=== PATIENT | female | born 1995 | race Caucasian/White ===

== ENCOUNTER 2020-09-04 17:56 | Emergency (ER) | payer OTHER, SELFPAY ==
--- NOTE | ~2020-09-04 | US_ITS ---
EXAMINATION: US OB LESS THAN 14 WEEKS FETUS US OB TRANSVAGINAL CLINICAL INFORMATION: Vaginal bleeding. History of miscarriages. COMPARISON: No prior imaging for the current . LMP: 07/19/2020. Gestational age by maternal dates is 6 weeks 5 days. Estimated date of delivery by maternal dates is 04/25/2021. TECHNIQUE: Transabdominal, transvaginal, and cine imaging was obtained. FINDINGS: No intrauterine or endometrial sac identified. Trace, simple free fluid within the cervix. Heterogeneous endometrium without significant thickening measuring up to 0.8 cm. Possible fundal fibroid measuring up to 0.9 cm. No additional myometrial lesion. MATERNAL ADNEXA: The right maternal ovary measures 5.1 x 2.3 x 1.7 cm. There is a probable involuting corpus luteum measuring up to 2.2 cm. The left maternal ovary measures 2.9 x 1.5 x 2.2 cm. No maternal pelvic ascites. US/US OB <= 14 weeks fetus IMPRESSION: 1. No intrauterine gestation. Slightly heterogeneous endometrium without significant thickening. Trace, simple fluid within the cervix. 2. Probable fundal fibroid measuring 0.9 cm. 3. Involuting right ovarian corpus luteum.
--- NOTE | ~2020-09-04 | US_ITS ---
EXAMINATION: US OB LESS THAN 14 WEEKS FETUS US OB TRANSVAGINAL CLINICAL INFORMATION: Vaginal bleeding. History of miscarriages. COMPARISON: No prior imaging for the current . LMP: 07/19/2020. Gestational age by maternal dates is 6 weeks 5 days. Estimated date of delivery by maternal dates is 04/25/2021. TECHNIQUE: Transabdominal, transvaginal, and cine imaging was obtained. FINDINGS: No intrauterine or endometrial sac identified. Trace, simple free fluid within the cervix. Heterogeneous endometrium without significant thickening measuring up to 0.8 cm. Possible fundal fibroid measuring up to 0.9 cm. No additional myometrial lesion. MATERNAL ADNEXA: The right maternal ovary measures 5.1 x 2.3 x 1.7 cm. There is a probable involuting corpus luteum measuring up to 2.2 cm. The left maternal ovary measures 2.9 x 1.5 x 2.2 cm. No maternal pelvic ascites. US/US OB transvaginal IMPRESSION: 1. No intrauterine gestation. Slightly heterogeneous endometrium without significant thickening. Trace, simple fluid within the cervix. 2. Probable fundal fibroid measuring 0.9 cm. 3. Involuting right ovarian corpus luteum.
[2020-09-04 18:16] VITALS: BP 141/71; PULSE 109; RESP 16; TEMP 36.6; O2SAT 98; BMI 38.7
[2020-09-04 18:37] LABS: MANUAL DIFF FLAG NO
[2020-09-04 18:41] LABS: Basophils Absolute Auto 0.1 X10*3/uL (0.0-0.2); Basophils Percent Auto 0.6 % (0-2); Eosinophils Absolute Auto 0.1 X10*3/uL (0.0-0.4); Eosinophils Percent Auto 0.9 % (0-4); Hematocrit 48.4 % (37-47); Hemoglobin 15.7 g/dl (12.0-16.0); Imm Gran Abs Auto 0.06 X10*3/uL (0.00-0.03); Imm Gran Pct Auto 0.6 % (0.0-0.4); Lymphocytes Absolute Auto 2.4 X10*3/uL (1.2-4.9); Lymphocytes Percent Auto 23.2 % (20-40); Mean Corpuscular HGB Conc 32.4 g/dl (31.0-35.0); Mean Corpuscular Hemoglobin 30.1 pg (27.0-33.0); Mean Corpuscular Volume 92.9 fL (80-98); Mean Platelet Volume 11.6 fL (9.4-12.3); Monocytes Absolute Auto 0.7 X10*3/uL (0.1-1.2); Monocytes Percent Auto 6.6 % (2-11); Neutrophils Absolute Auto 7.1 X10*3/uL (2.0-8.3); Neutrophils Percent Auto 68.1 % (45-73); Platelet Count 223 X10*3/uL (160-400); Red Blood Count 5.21 X10*6/uL (4.20-5.50); Red Cell Distribution Width 12.9 % (11.0-16.0); White Blood Count 10.4 X10*3/uL (4.8-10.8)
[2020-09-04 19:02] LABS: Anion Gap 14 (12-20); Blood Urea Nitrogen 9 mg/dL (9-16); Calcium 9.3 mg/dL (8.4-10.2); Carbon Dioxide 27 mmol/L (22-29); Chloride 104 mmol/L (96-108); Creatinine Clr Calc Pharmacy 101.5; Estimated Glomerular Filt Rate > 60; Glucose Random 100 mg/dL (60-115); Potassium 4.3 mmol/L (3.3-5.1); Sodium 141 mmol/L (135-145)
[2020-09-04 19:10] LABS: HCG Quantitative 111 mIU/mL
--- NOTE | 2020-09-04 21:47 | ED.PREGNANCY ---
HPI - General Chief complaint: Vaginal Bleeding Stated complaint: vag bleed () Time Seen by Provider: 09/04/20 21:34 Source: patient Mode of arrival: ambulatory Limitations: no limitations History of Present Illness HPI Narrative: Patient comes emergency room complaining of vaginal bleeding. Patient states by last menstrual. She is approximately 6 weeks of gestational age. Patient is G4PA3. Patient states she was seen 2 days ago , her OB GYNs office, [facility], patient is known to be A negative blood type, and given RhoGAM. Patient states that she has been spotting for almost 5 days now, but for the last 2 days she has been bleeding, about the same amount than her usual menstrual periods, no blood clots. Earlier this afternoon patient had cramping, she took ibuprofen and naproxen. Related Data Allergies Allergy/AdvReac Type Severity Reaction Status Date / Time nickel [NICKEL] Allergy Mild ITCHY RASH Unverified 02/04/20 19:34 Review of Systems Review of Systems: Constitutional : No Weight loss, No Fever, No Chills, No Night Sweats, No Fatigue, No Malaise ENT/Mouth : No Hearing loss, No Ear Pain, No Nasal Congestion, No Sinus Pain, No Hoarseness, No sore throat, No Rhinorrhea, No Swallowing Difficulty Eyes: No Eye Pain, No Swelling, No Redness, No Foreign Body, No Discharge, No Vision Changes Cardiovascular : No Chest Pain, No SOB, No Dyspnea on Exertion, No Orthopnea, No Edema, No Palpitations Respiratory : No Cough, No Sputum, No Wheezing, No Smoke Exposure, No Dyspnea Gastrointestinal : No Nausea, No Vomiting, No Diarrhea, No Constipation, No abdominal Pain other than mild occasional cramping which resolved now, No Hematochezia, No Melena Genitourinary : No dysuria, no hematuria, complaining of vaginal bleeding Musculoskeletal : No joint pain, No Myalgias, No Joint Swelling Skin : No Skin Lesions, No rash Neuro : No Weakness, No Numbness, No Paresthesias, No Loss of Consciousness, No Dizziness, No Headache Psych : No Anxiety/Panic, No Depression, No SI/HI/AH/VH, No Social Issues, Heme/Lymph: No Bruising, No Bleeding,No Lymphadenopathy Endocrine : No Polyuria, No Polydipsia, No Temperature Intolerance [facility] Past Medical History Medical History (Updated 09/05/20 @ 00:31 by Suha George MD) History of multiple miscarriages No known health problems Social History Social History Advance Directives: No Physical Exam Vital Signs: Vital Signs: Last Vital Signs Temp 98 F 09/04/20 18:16 Pulse 94 09/04/20 22:17 Resp 16 09/04/20 22:17 BP 132/91 H 09/04/20 22:17 Pulse Ox 97 09/04/20 22:17 Body Mass Index 38.7 Appearance: Alert. Oriented X3. No acute distress. Eyes: Pupils equal, round and reactive to light. ENT: Pharynx normal. Neck: Normal inspection. Neck supple. No lymph nodes noted. No crepitus CVS: Normal heart rate and rhythm. Pulses normal. Normal S1 and S2 Respiratory: No respiratory distress. Breath sounds normal. No Wheezing. No rales Abdomen: Soft and nontender. No rigidity. No distention. good BS x4 : Cervical os open, small to moderate amount of blood in the vaginal vault, no active bleeding through the cervical os Skin: Skin warm and dry. Normal skin color. Normal skin turgor. Extremities: No lower extremity edema. No lower extremity edema. No Lacerations. No Rash Neuro: Oriented X 3. No motor deficit. No sensory deficit. Moving all extermities. No slurred speech. Course Course Course Narrative: I discussed the physical exam and the ultrasound and labs with the patient. Ultrasound there was no intrauterine gestation. I discussed with the patient that she needs to have further workup with her PCP/OBGYN to figure out the reasons of her repeated miscarriages, rule out antiphospholipid syndrome, any other etiologies. Patient struck with a follow-up with her OBGYN Patient had a RhoGAM shot 2 days ago, at this time a 2nd injection is not indicated. MDM - OB/Uterine Contractions Lab Data Result diagrams: 09/04/20 18:30 09/04/20 18:30 Labs: Lab Results 09/04/20 09/04/20 Range/Units 18:30 18:30 WBC 10.4 (4.8-10.8) X10*3/uL RBC 5.21 (4.20-5.50) X10*6/uL Hgb 15.7 (12.0-16.0) g/dl Hct 48.4 H (37-47) % MCV 92.9 (80-98) fL MCH 30.1 (27.0-33.0) pg MCHC 32.4 (31.0-35.0) g/dl RDW 12.9 (11.0-16.0) % Plt Count 223 (160-400) X10*3/uL MPV 11.6 (9.4-12.3) fL Immature Gran % (Auto) 0.6 H (0.0-0.4) % Neut % (Auto) 68.1 (45-73) % Lymph % (Auto) 23.2 (20-40) % [place] % (Auto) 6.6 (2-11) % Eos % (Auto) 0.9 (0-4) % Baso % (Auto) 0.6 (0-2) % Lymph # (Auto) 2.4 (1.2-4.9) X10*3/uL [place] # (Auto) 0.7 (0.1-1.2) X10*3/uL Eos # (Auto) 0.1 (0.0-0.4) X10*3/uL Baso # (Auto) 0.1 (0.0-0.2) X10*3/uL Abs Immat Gran (auto) 0.06 H (0.00-0.03) X10*3/uL Absolute Neuts (auto) 7.1 (2.0-8.3) X10*3/uL Absolute Nucleated RBC 0.000 (0.0-0.012) X10*3/uL Nucleated RBC % (auto) 0.0 (0.0-0.2) /100WBC Sodium 141 (135-145) mmol/L Potassium 4.3 (3.3-5.1) mmol/L Chloride 104 (96-108) mmol/L Carbon Dioxide 27 (22-29) mmol/L Anion Gap 14 (12-20) BUN 9 (9-16) mg/dL Creatinine 0.90 (0.5-1.4) mg/dL Estim Creat Clear Calc 101.5 Estimated GFR > 60 Random Glucose 100 (60-115) mg/dL Calcium 9.3 (8.4-10.2) mg/dL Beta HCG, Quant 111 mIU/mL 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 Trace, simple free fluid within the cervix. Heterogeneous endometrium without significant thickening measuring up to 0.8 cm. Possible fundal fibroid measuring up to 0.9 cm. No additional myometrial lesion. MATERNAL ADNEXA: The right maternal ovary measures 5.1 x 2.3 x 1.7 cm. There is a probable involuting corpus luteum measuring up to 2.2 cm. The left maternal ovary measures 2.9 x 1.5 x 2.2 cm. No maternal pelvic ascites. US/US OB <= 14 weeks fetus IMPRESSION: 1. No intrauterine gestation. Slightly heterogeneous endometrium without significant thickening. Trace, simple fluid within the cervix. 2. Probable fundal fibroid measuring 0.9 cm. 3. Involuting right ovarian corpus luteum. Discharge Plan Discharge Clinical Impression: History of multiple miscarriages Patient Disposition: Home, Self-Care Instructions: Miscarriage (ED) Additional Instructions: Please follow-up with your OBGYN, the level (hCG) needs to decrease, you may need blood work again. Please follow-up with your primary care physician tomorrow. If you have any worsening or new symptoms, please return to the emergency room or call 911
[2020-09-04 22:17] VITALS: BP 132/91; PULSE 94; RESP 16; O2SAT 97
== END 2020-09-05 01:37 | disposition home or self-care (01) ==
PROVIDERS: Emergency Provider Emergency Medicine
DX: O20.0 Threatened abortion (principal); Z3A.01 Less than 8 weeks gestation of pregnancy
CPT/HCPCS: 36415; 76801; 76817; 80048; 84702; 85025; 99284

== ENCOUNTER 2020-10-06 16:24 | Emergency (ER) | payer OTHER, SELFPAY ==
[2020-10-06 16:29] VITALS: BP 140/96; PULSE 105; RESP 18; TEMP 36.9; O2SAT 97; BMI 36.6
--- NOTE | 2020-10-06 17:20 | ED.ANIMALBIT ---
HPI - Animal Bite General Chief Complaint: Animal Bite Stated Complaint: Dog bite Time Seen by Provider: 10/06/20 17:02 Source: patient Mode of arrival: ambulatory Limitations: no limitations History of Present Illness HPI narrative: 25 y/o female presenting with superficial laceration and bruising to her right forearm from her dog when she was trying to break up a dog fight at the dog park prior to arrival. She states as soon as her dog realized it was her arm, he released his bite. Bite pascal are localized to the dorsal aspect of her right forearm with bruising and superficial abrasions. There is also a 1cm laceration without active bleeding. Small amount of adipose tissue is visible. She states her dog is not up to date on his vaccines but is healthy. He has never bitten her or another person before. MD complaint: animal bite Onset (ago): hour(s) (1) Animal: dog Description of animal: household pet Mechanism: bite Location - Extremities: right: forearm Pain description: dull Severity scale (1-10): 5 Context: animals fighting Treatments prior to arrival: irrigation Related Data Patient tetanus UTD: No Previous Rx's Medication Instructions Recorded amoxicillin-pot clavulanate 1 tab PO BID #14 tab 10/06/20 [Augmentin] Allergies Allergy/AdvReac Type Severity Reaction Status Date / Time nickel [NICKEL] Allergy Mild ITCHY RASH Unverified 02/04/20 19:34 Review of Systems Review of Systems: Constitutional: No Fever, No Chills Gastrointestinal: + Nausea, No Vomiting Musculoskeletal: No joint pain, + Myalgias Skin: + Skin Lesions, No rash Neuro: No Weakness, No Numbness Psych: + Anxiety/Panic, No Depression Heme/Lymph: +Bruising, No Lymphadenopathy PMFSH Past Medical History Attestation statement: The following information was validated with the patient. Medical History History of multiple miscarriages No known health problems Social History Social History Advance Directives: No Advance Directives Information Provided: No Patient : No Physical Exam Vital Signs: Vital Signs: Last Vital Signs Temp 98.4 F 10/06/20 16:29 Pulse 105 H 10/06/20 16:29 Resp 18 10/06/20 16:29 BP 140/96 H 10/06/20 16:29 Pulse Ox 97 10/06/20 16:29 Body Mass Index 36.6 Appearance: Alert. Oriented X3. No acute distress. HEENT: normal inspection CVS: Normal heart rate and rhythm. Pulses normal. Respiratory: No respiratory distress. Skin: Skin warm and dry. Normal skin color. Normal skin turgor. No rashes. Extremities: right dorsal forearm with multiple superficial abrasions and 1cm lineaer laceration with exposed adipose tissue, no active bleeding. ecchymosis of forearm with soft and compressible compartments. NV intact distally. normal ROM of right elbow and wrist. Neuro: Oriented X 3. No motor deficit. No sensory deficit. Course Course Course Narrative: 25 y/o female presenting with dog bite from her dog. Wounds are superficial with ecchymosis surrounding. Bite was not circumfrential, do not suspect any bony involvement or injury. No need for x-ray at this time. Would cleaned extensively with H2O2 and saline. Wound closed with steri strip and antibiotic ointment applied. Dry and sterile dressing applied. Tdap, augmentin and Motrin ordered. Patient is stable for discharge with PO abx. She will monitor her dog at home. Procedures Laceration Laceration 1: Site: upper extremity Side (If applicable): right Size (cm): 1 Description: linear Depth: simple, single layer Pre-repair: irrigated extensively Skin layer closed with: other (steri-strip) Critical Care Time Critical Care Time Critical Care Time: No Discharge Plan Discharge Clinical Impression: Dog bite Qualifiers: Encounter type: initial encounter Qualified Code(s): W54.0XXA - Bitten by dog, initial encounter Patient Disposition: Home, Self-Care Instructions: Animal Bite (ED) Additional Instructions: Take the prescribed antibiotic as directed. Keep wound clean and covered. Do not soak in water. After 24 hours you may briefly wash with soap and water then pat dry. Use antibiotic ointment 2x per day. Allow the steri-strip to fall off on its own, do not peel it off. Take Motrin as needed for pain. Apply ice and elevate your arm when possible. If you develop increased pain, swelling, redness or drainage of pus come back to the ER for further evaluation. Prescriptions: New amoxicillin-pot clavulanate [Augmentin] 875-125 mg tablet 1 tab PO BID Qty: 14 RF: 0
[2020-10-06] MEDS: Ibuprofen 600 MG TABLET PO (17:41)
[2020-10-06] MEDS: Diphth,Pertus(ACell),Tet Adult 0.5 ML SYRINGE IM (17:42)
[2020-10-06] MEDS: Amoxicillin/Potassium Clav 875 MG TABLET PO (17:42)
== END 2020-10-06 17:46 | disposition home or self-care (01) ==
PROVIDERS: Emergency Provider Emergency Medicine
DX: S51.851A Open bite of right forearm, initial encounter (principal); W54.0XXA Bitten by dog, initial encounter; Y93.89 Activity, other specified; Y92.830 Public park as the place of occurrence of the external cause; Y99.9 Unspecified external cause status
CPT/HCPCS: 90471; 90715; 99283; 99284

== ENCOUNTER 2021-07-22 03:25 | Emergency (ER) | payer OTHER, SELFPAY ==
--- NOTE | ~2021-07-22 | US_ITS ---
EXAMINATION: US OBSTETRICAL ULTRASOUND CLINICAL INFORMATION: Significant pain, vaginal bleeding COMPARISON: Patient reportedly had outside facility ultrasound on 07/17/2021, with images not available for comparison at this time LMP: 04/23/2021. Gestational age by maternal dates is 12 weeks 6 days. Estimated date of delivery by maternal dates is 01/28/2022. TECHNIQUE: Sonographic evaluation of the pelvis was performed transabdominally and transvaginally. FINDINGS: The uterus measures 11.0 cm in length and 5.1 x 6.4 cm in AP and transverse dimensions. Gestational sac is visualized in the region of the lower uterine segment/cervix. pole is identified with a crown-rump length of 2.1 cm corresponding to gestational age 8 weeks 5 days (estimated date of delivery 02/26/2022). No cardiac activity is seen. The right ovary measures 3.5 x 2.5 x 1.7 cm and appears unremarkable. The left ovary measures 2.9 x 1.9 x 2.1 cm and also appears unremarkable. Small amount of free fluid is seen in the cul-de-sac. US/US OB pelvic and transvaginal IMPRESSION: Gestational sac within the lower uterine segment/cervix. pole is identified without cardiac activity, and gestational age as per crown-rump length is approximately 4 weeks less than expected as per reported last menstrual period. Appearance is consistent with failed early . This critical result was discussed with Dr. Fowler on 07/22/2021 6:22 AM, and it was ascertained that the content and urgency of the report was understood at the time of direct communication.
[2021-07-22 03:27] VITALS: BP 106/88; PULSE 88; RESP 18; TEMP 36.4; O2SAT 97; BMI 43.9
--- NOTE | 2021-07-22 04:09 | PC.NURSE ---
Addendum entered by Brigido Meng RN 07/22/21 04:14: In addition, the pt states she is having vaginal bleeding and I'm passing some clots. Original Note: The pt presents alert and oriented x 3 from waiting room for evaluation of severe abdominal/pelvic pain. SHe states she was seen at [facility] last night and was told that she is having a miscarriage but my cervix is closed. Pt is writhing in pain upon arrival to bed 14. Skin pink/warm/dry, no nausea or vomiting, no fevers or chills. IV access/labs obtained. Awaiting initial MD [email or web address].
[2021-07-22 04:11] LABS: MANUAL DIFF FLAG NO
[2021-07-22 04:14] LABS: Basophils Absolute Auto 0.1 X10*3/uL (0.0-0.2); Basophils Percent Auto 0.3 % (0-2); Eosinophils Absolute Auto 0.1 X10*3/uL (0.0-0.4); Eosinophils Percent Auto 0.7 % (0-4); Hematocrit 39.5 % (37.0-47.0); Hemoglobin 12.9 g/dl (12.0-16.0); Imm Gran Abs Auto 0.09 X10*3/uL (0.00-0.03); Imm Gran Pct Auto 0.5 % (0.0-0.4); Lymphocytes Absolute Auto 2.9 X10*3/uL (1.2-4.9); Lymphocytes Percent Auto 15.4 % (20-40); Mean Corpuscular HGB Conc 32.7 g/dl (31.0-35.0); Mean Corpuscular Hemoglobin 28.9 pg (27.0-33.0); Mean Corpuscular Volume 88.4 fL (80.0-98.0); Mean Platelet Volume 11.4 fL (9.4-12.3); Monocytes Absolute Auto 1.1 X10*3/uL (0.1-1.2); Monocytes Percent Auto 5.7 % (2-11); Neutrophils Absolute Auto 14.5 x10*3/uL (2.0-8.3); Neutrophils Percent Auto 77.4 % (45-73); Platelet Count 205 X10*3/uL (160-400); Red Blood Count 4.47 X10*6/uL (4.20-5.50); White Blood Count 18.7 X10*3/uL (4.8-10.8)
[2021-07-22 04:28] LABS: Anion Gap 11 (12-20); Blood Urea Nitrogen 12 mg/dL (9-16); Calcium 9.2 mg/dL (8.4-10.2); Carbon Dioxide 26 mmol/L (22-29); Chloride 104 mmol/L (96-108); Creatinine Clr Calc Pharmacy 132.7; Estimated Glomerular Filt Rate > 60; Glucose Random 111 mg/dL (60-115); Potassium 3.9 mmol/L (3.3-5.1); Sodium 137 mmol/L (135-145)
[2021-07-22 04:35] LABS: HCG Quantitative 331 mIU/mL
[2021-07-22] MEDS: Ketorolac Tromethamine 30 MG/ML VIAL 15 MG IVPUSH (04:51)
[2021-07-22] MEDS: HYDROmorphone HCl 0.5 MG/0.5 ML SYRINGE 0.1 MG IVPUSH (04:51)
--- NOTE | 2021-07-22 05:24 | ED_ITS ---
HPI - Female Genitourinary General Chief complaint: Urogenital-Female Stated complaint: miscarriage Time Seen by Provider: 07/22/21 04:10 Source: patient Mode of arrival: ambulatory History of Present Illness HPI Narrative: 25-year-old female without significant past medical history presents with significant lower abdominal/pelvic pain without associated fever, chills, nausea vomiting, diarrhea. Patient states that she was evaluated at [facility] yesterday for vaginal bleeding and passing of clots. Patient states that on 07/17 she was told that she had miscarried and at that time there were no plans for D&C. Related Data Previous Rx's Medication Instructions Recorded amoxicillin 875 mg-potassium 1 tab PO BID #14 tab 10/06/20 clavulanate 125 mg tablet (Augmentin) ketorolac 10 mg tablet 10 mg PO Q6H PRN 5 Days #20 tab 07/22/21 Allergies Allergy/AdvReac Type Severity Reaction Status Date / Time nickel [NICKEL] Allergy Mild ITCHY RASH Unverified 02/04/20 19:34 Review of Systems Review of Systems: Pertinent positives and negatives as stated in HPI 10 point review of systems is otherwise negative. PMFSH Past Medical History Source: nursing notes reviewed Medical History History of multiple miscarriages No known health problems Social History Social History Advance Directives: No Patient : Yes Physical Exam Vital Signs: Vital Signs: Last Vital Signs Temp 97.6 F 07/22/21 03:27 Pulse 88 07/22/21 03:27 Resp 18 07/22/21 03:27 BP 106/88 07/22/21 03:27 Pulse Ox 97 07/22/21 03:27 BMI result Body Mass Index 43.9 VITAL SIGNS: Reviewed. GENERAL: Well developed, well nourished, in moderate distress. HEAD: Normocephalic/atraumatic EYES: PERRLA, EOMI EARS: Ext canals without abnormality OROPHARYNX: no oral lesions noted, posterior pharynx clear LUNGS: Normal breath sounds. No adventitious sounds or accessory muscle use. SpO2<97> CARDIOVASCULAR: Regular rate and rhythm without noted murmurs ABDOMEN: Soft, abdominal tenderness without rebound non-distended with bowel sounds. MUSCULOSKELETAL: No tenderness, deformities, or effusions noted on gross inspection. EXTREMITIES: No cyanosis, clubbing or edema. SKIN: Inspection of the skin reveals no rashes NEUROLOGIC: Alert and oriented x 4. Strength and sensation to light touch were grossly intact x 4. Course Course Course Narrative: 25-year-old female with history clinical presentation consistent with retained products of conception, patient was evaluated at [facility] and discharged on pain medications with plans for D&C on Saturday and ultrasound findings that on review of all investigations are consistent with today's findings. There been no acute changes and the products of conception are noted to be in the lower uterine segment and fluid is seen within the cervix. Patient was provided with pain medications as well as a single dose of antibiotics and on re- evaluation she states that she is feeling much better. Patient is otherwise hemodynamically stable for discharge home with strict return precautions regarding any development of fever, chills, nausea, vomiting or significant increase in vaginal bleeding. Patient states that she has had mild vaginal bleeding but that it is not requiring pad change hourly. Reevaluation(s) Reevaluation #1: Mid- Luis recommends discharge if nothing further found. Time: 04:50 [facility] - Female Genitourinary Lab Data Result diagrams: 07/22/21 04:07 07/22/21 04:07 Labs: Lab Results 07/22/21 07/22/21 07/22/21 Range/Units 04:07 04:07 06:01 WBC 18.7 H (4.8-10.8) X10*3/uL RBC 4.47 (4.20-5.50) X10*6/uL Hgb 12.9 (12.0-16.0) g/dl Hct 39.5 (37.0-47.0) % MCV 88.4 (80.0-98.0) fL MCH 28.9 (27.0-33.0) pg MCHC 32.7 (31.0-35.0) g/dl RDW 13.0 (11.0-16.0) % Plt Count 205 (160-400) X10*3/uL MPV 11.4 (9.4-12.3) fL Immature Gran % (Auto) 0.5 H (0.0-0.4) % Neut % (Auto) 77.4 H (45-73) % Lymph % (Auto) 15.4 L (20-40) % [place] % (Auto) 5.7 (2-11) % Eos % (Auto) 0.7 (0-4) % Baso % (Auto) 0.3 (0-2) % Lymph # (Auto) 2.9 (1.2-4.9) X10*3/uL [place] # (Auto) 1.1 (0.1-1.2) X10*3/uL Eos # (Auto) 0.1 (0.0-0.4) X10*3/uL Baso # (Auto) 0.1 (0.0-0.2) X10*3/uL Abs Immat Gran (auto) 0.09 H (0.00-0.03) X10*3/uL Absolute Neuts (auto) 14.5 H (2.0-8.3) x10*3/uL Absolute Nucleated RBC 0.000 (0.0-0.012) X10*3/uL Nucleated RBC % (auto) 0.0 (0.0-0.2) /100WBC Sodium 137 (135-145) mmol/L Potassium 3.9 (3.3-5.1) mmol/L Chloride 104 (96-108) mmol/L Carbon Dioxide 26 (22-29) mmol/L Anion Gap 11 L (12-20) BUN 12 (9-16) mg/dL Creatinine 0.74 (0.5-1.4) mg/dL Estim Creat Clear Calc 132.7 Estimated GFR > 60 Random Glucose 111 (60-115) mg/dL Lactic Acid 1.1 (0.5-2.0) mmol/L Calcium 9.2 (8.4-10.2) mg/dL Beta HCG, Quant 331 mIU/mL Discharge Plan Discharge Clinical Impression: Missed , Retained products of conception, early Patient Disposition: Home, Self-Care Instructions: Miscarriage (ED) Additional Instructions: 1. Resume all home medications as prescribed. 2. Tylenol 1000 mg, orally, every 6 hours as needed for pain control. Do not exceed 4000 mg within 24 hours. 3. Keep your appointment for your procedure on Saturday as scheduled. Return to the ER for worsening symptoms such as fevers, chills, nausea, vomiting, vaginal bleeding requiring you to change your pads every hour. Prescriptions: New ketorolac 10 mg tablet 10 mg PO Q6H PRN (Reason: pain) 5 Days Qty: 20 0RF Rx Instructions: Patient received Toradol in the emergency room. No Action amoxicillin-pot clavulanate [Augmentin] 875-125 mg tablet 1 tab PO BID Qty: 14 0RF
[2021-07-22] MEDS: Piperacillin Sodium/Tazobactam 3.375 GM in 0.9 % Sodium Chloride 50 ML IV (06:06)
[2021-07-22 06:15] LABS: Lactic Acid 1.1 mmol/L (0.5-2.0)
== END 2021-07-22 07:10 | disposition home or self-care (01) ==
PROVIDERS: Emergency Provider Student in an Organized Health Care Education/Training Program
DX: O02.1 Missed abortion (principal); Z3A.08 8 weeks gestation of pregnancy; R10.30 Lower abdominal pain, unspecified
CPT/HCPCS: 36415; 76801; 76817; 80048; 83605; 84702; 85025; 87040; 96365; 96375; 99284; 99285; J1170; J1885; J2543

== ENCOUNTER 2023-01-02 18:06 | Emergency (ER) | payer MEDICAID, SELFPAY ==
[2023-01-02 18:15] VITALS: BP 126/71; PULSE 100; RESP 18; TEMP 36.8; O2SAT 98; BMI 44.1
--- NOTE | 2023-01-02 18:15 | ED.FEMALEGU ---
HPI - Female Genitourinary General Chief complaint: General Medical Stated complaint: rhogam shot Related Data Previous Rx's Medication Instructions Recorded amoxicillin 875 mg-potassium 1 tab PO BID #14 tabs 10/06/20 clavulanate 125 mg tablet (Augmentin) ketorolac 10 mg tablet 10 mg PO Q6H PRN pain 5 days #20 07/22/21 tabs Allergies Allergy/AdvReac Type Severity Reaction Status Date / Time nickel [NICKEL] Allergy Mild ITCHY RASH Unverified 02/04/20 19:34 [facility] Past Medical History Medical History History of multiple miscarriages No known health problems Social History Social History Advance Directives: No Advance Directives Information Provided: No Physical Exam Vital Signs: Vital Signs: Last Vital Signs Temp 98.3 F 01/02/23 18:15 Pulse 100 01/02/23 18:15 Resp 18 01/02/23 18:15 BP 126/71 01/02/23 18:15 Pulse Ox 98 01/02/23 18:15 O2 Del Method Room Air 01/02/23 18:15 BMI result Body Mass Index 44.1 Course Course Course Narrative: RME: 27yo F @12 weeks gestation c/o vaginal bleeding 2 weeks ago and then 2 days ago, was instructed by JOSEF to obtain RhoGAM injection however has not yet made it back and they are closed today. denies current bleeding or abdominal pain Labs ordered Full HPI, ROS and PE to be performed by primary ED provider. Medical Decision Making Lab Data 01/02/23 18:28 01/02/23 18:28 Labs: Lab Results 01/02/23 01/02/23 01/02/23 Range/Units 18:28 18:28 18:28 WBC 15.7 H (4.8-10.8) X10*3/uL RBC 4.45 (4.20-5.50) X10*6/uL Hgb 13.2 (12.0-16.0) g/dl Hct 38.5 (37.0-47.0) % MCV 86.5 (80.0-98.0) fL MCH 29.7 (27.0-33.0) pg MCHC 34.3 (31.0-35.0) g/dl RDW 13.1 (11.0-16.0) % Plt Count 172 (160-400) X10*3/uL MPV 11.5 (9.4-12.3) fL Immature Gran % (Auto) 0.6 H (0.0-0.4) % Neut % (Auto) 71.4 (45-73) % Lymph % (Auto) 21.0 (20-40) % [place] % (Auto) 5.9 (2-11) % Eos % (Auto) 0.8 (0-4) % Baso % (Auto) 0.3 (0-2) % Lymph # (Auto) 3.3 (1.2-4.9) X10*3/uL [place] # (Auto) 0.9 (0.1-1.2) X10*3/uL Eos # (Auto) 0.1 (0.0-0.4) X10*3/uL Baso # (Auto) 0.1 (0.0-0.2) X10*3/uL Abs Immat Gran (auto) 0.10 H (0.00-0.03) X10*3/uL Absolute Neuts (auto) 11.2 H (2.0-8.3) x10*3/uL Absolute Nucleated RBC 0.000 (0.0-0.012) X10*3/uL Nucleated RBC % (auto) 0.0 (0.0-0.2) /100WBC Sodium 136 (135-145) mmol/L Potassium 3.9 (3.3-5.1) mmol/L Chloride 104 (96-108) mmol/L Carbon Dioxide 24 (22-29) mmol/L Anion Gap 12 (12-20) BUN 8 L (9-16) mg/dL Creatinine 0.74 (0.5-1.4) mg/dL Estim Creat Clear Calc 130.7 Estimated GFR > 60 Random Glucose 87 (60-115) mg/dL Calcium 9.7 (8.4-10.2) mg/dL Beta HCG, Quant 71022 mIU/mL Blood Type A Negative Discharge Plan Discharge Clinical Impression: Diagnosis unknown Patient Disposition: Elopement Prescriptions: No Action amoxicillin-pot clavulanate [Augmentin] 875-125 mg tablet 1 tab PO BID Qty: 14 0RF ketorolac 10 mg tablet 10 mg PO Q6H PRN (Reason: pain) 5 Days Qty: 20 0RF Rx Instructions: Patient received Toradol in the emergency room. Interventions: ED Discharge Assessment Last Done: 01/02/23 19:09 Discharge Date/Time: 01/02/23 20:13
--- NOTE | 2023-01-02 18:31 | MHC.EDTECH ---
PATIENT BLOOD DRAWN INCLUDING TYPE AND SCREEN AND SENT TO LAB .
[2023-01-02 18:33] LABS: MANUAL DIFF FLAG NO
[2023-01-02 18:39] LABS: Basophils Absolute Auto 0.1 X10*3/uL (0.0-0.2); Basophils Percent Auto 0.3 % (0-2); Eosinophils Absolute Auto 0.1 X10*3/uL (0.0-0.4); Eosinophils Percent Auto 0.8 % (0-4); Hematocrit 38.5 % (37.0-47.0); Hemoglobin 13.2 g/dl (12.0-16.0); Imm Gran Pct Auto 0.6 % (0.0-0.4); Lymphocytes Absolute Auto 3.3 X10*3/uL (1.2-4.9); Mean Corpuscular HGB Conc 34.3 g/dl (31.0-35.0); Mean Corpuscular Hemoglobin 29.7 pg (27.0-33.0); Mean Corpuscular Volume 86.5 fL (80.0-98.0); Mean Platelet Volume 11.5 fL (9.4-12.3); Monocytes Absolute Auto 0.9 X10*3/uL (0.1-1.2); Monocytes Percent Auto 5.9 % (2-11); Neutrophils Absolute Auto 11.2 x10*3/uL (2.0-8.3); Neutrophils Percent Auto 71.4 % (45-73); Platelet Count 172 X10*3/uL (160-400); Red Blood Count 4.45 X10*6/uL (4.20-5.50); Red Cell Distribution Width 13.1 % (11.0-16.0); White Blood Count 15.7 X10*3/uL (4.8-10.8)
[2023-01-02 18:54] LABS: Anion Gap 12 (12-20); Blood Urea Nitrogen 8 mg/dL (9-16); Calcium 9.7 mg/dL (8.4-10.2); Carbon Dioxide 24 mmol/L (22-29); Chloride 104 mmol/L (96-108); Creatinine Clr Calc Pharmacy 130.7; Estimated Glomerular Filt Rate > 60; Glucose Random 87 mg/dL (60-115); Potassium 3.9 mmol/L (3.3-5.1); Sodium 136 mmol/L (135-145)
[2023-01-02 19:14] LABS: HCG Quantitative 39120 mIU/mL
== END 2023-01-02 20:13 | disposition left against medical advice (07) ==
LOC: HO.ED 20:11
PROVIDERS: Physician Assistant; Emergency Provider Emergency Medicine; PCP Internal Medicine
DX: O36.0910 Maternal care for other rhesus isoimmunization, first trimester, not applicable or unspecified (principal); Z3A.12 12 weeks gestation of pregnancy; Z79.899 Other long term (current) drug therapy
CPT/HCPCS: 36415; 80048; 84702; 85025; 86900; 86901; 99282; 99283

== ENCOUNTER 2025-01-25 14:07 | Outpatient (AMB) | payer MEDICAID, SELFPAY ==
--- NOTE | 2025-01-25 14:05 | A.OFFPC_ITS ---
Vital Signs 01/25/25 14:07 Height 5 ft 1.81 in Weight 247 lb BMI 45.5 BP 112/59 L Respiration 14 Pulse 96 Pulse Source Pulse Oximeter Temp 98.1 F Temp Source Temporal Artery Scan Pulse Oximetry (%) 96 Oxygen Delivery Method Room Air Intake Visit Reasons: Establish Care - see comments Sales Compensation Analyst Required: No Accompanied by: Self / Same As Patient Allergies nickel (NICKEL) Allergy (Mild, Unverified 01/25/25 14:05) ITCHY RASH Tobacco use date assessed: 01/25/25 Dental Screening Dental Screen Date: 01/25/25 Did you have a dental visit in the last 12 months?: No Did you have a dental problem in the last 6 months where you did not have access to dental care?: No Was dental information given to patient?: Patient has dentist [facility] Medical History (Updated 01/25/25 @ 14:34 by Victorino Theodore MD) Panic attacks Obesity History of multiple miscarriages No known health problems Family History (Updated 01/25/25 @ 14:13 by JOSAFAT Verdugo) Father Heart attack Prediabetes Mother IBS (irritable bowel syndrome) Social History (Updated 01/25/25 @ 14:14 by JOSAFAT Verdugo) Housing: Apartment Alcohol intake: current Alcohol intake frequency: holidays/special occasions only Patient Tobacco Use Status: Current everyday Tobacco user Cigarettes Per Day: 10 service: No Current occupational status: unemployed Cognitive needs: No Hearing needs: No Vision needs: No Questionnaire PHQ-9 Over the last 2 weeks, how often have you been bothered by any of the following problems? 1. Little interest or pleasure in doing things: not at all 2. Feeling down, depressed, or hopeless: not at all 3. Trouble falling or staying asleep, or sleeping too much: not at all 4. Feeling tired or having little energy: not at all 5. Poor appetite or overeating: not at all 6. Feeling bad about yourself - or that you are a failure or have let yourself or your family down: not at all 7. Trouble concentrating on things, such as reading the newspaper or watching television: not at all 8. Moving or speaking so slowly that other people could have noticed. Or the opposite - being so fidgety or restless that you have been moving around a lot more than usual: not at all 9. Thoughts that you would be better off or of hurting yourself in some way: not at all Total score: 0 Source: Developed by Drs. Cj Ruzi, Leslie Molina, Curly Mi and colleagues, with an educational joann from [employer]. Thrive Questionnaire Date Thrive assessed: 01/25/25 I am a: Patient What is your living situation today?: I have a steady place to live Within the past 12 months, did the food you bought not last and you didn't have the money to get more?: Never true Within the past 12 months, did you worry whether your food would run out before you got money to buy more?: Never true Do you have trouble paying for medicines?: No Do you have trouble getting transportation to medical appointments?: No Do you have trouble paying your heating and electricity bill?: No Do you have trouble taking care of your child, family member or friend?: No Do you have trouble with day-to-day activities such as bathing, preparing meals, shopping, managing finances, etc.?: No Are you currently unemployed and looking for a job?: No Are you interested in more education?: No Please select the resources that you would like help with: None THRIVE Score: 0 AUDIT C Alcohol Use Questionnaire (AUDIT-C) 1. How often do you have a drink containing alcohol?: Monthly or less 2. How many drinks containing alcohol do you have on a typical day when you are drinking?: 1 or 2 3. How often do you have six or more drinks on one occasion?: Never Total Score: 1 ELAINA-7 AMB Questionnaire ELAINA-7 Date ELAINA - 7 assessed: 01/25/25 Feeling nervous, anxious, or on edge: 3 = Nearly every day Not being able to stop or control worryin = More than half the days Worrying too much about different things: 3 = Nearly every day Trouble relaxin = More than half the days Being so restless that it is hard to sit still: 1 = Several days Becoming easily annoyed or irritable: 2 = More than half the days Feeling afraid as if something awful might happen: 0 = Not at all Total ELAINA-7 score (0-4 normal; 5-9 mild; 10-14 moderate; 15-21 severe): 13 Source: Developed by DrsBahman Ruiz, Leslie Molina, Curly Mi and colleagues, with an educational joann from [employer]. Physical exam (Primary Care) Vital Signs: Last Vital Signs Temp 98.1 F 01/25/25 14:07 Pulse 96 01/25/25 14:07 Resp 14 01/25/25 14:07 BP 112/59 L 01/25/25 14:07 Pulse Ox 96 01/25/25 14:07 Oxygen Delivery Method Room Air 01/25/25 14:07 BMI result Body Mass Index 45.5 Tobacco/Smoking Status: Tobacco use Status Tobacco use date assessed 01/25/25 01/25/25 14:07 Patient Tobacco Use Status Current everyday Tobacco 01/25/25 14:16 PHQ-9: PHQ-9 Score PHQ-9: Total score 0 01/25/25 14:07 Thrive Assessment: Date of Thrive Assessment Date Thrive assessed 01/25/25 01/25/25 14:07 Coding Level of Care Code New Pt Level 4 (88412) Complex EM visit Add On G2211 Diagnoses Obesity E66.9 Panic attacks F41.0 Assessment & Plan Assessment & Plan (1) Obesity: Code(s): E66.9 - Obesity, unspecified Category: Medical Plan: Patient is interested in bariatric surgery. She had a partial workup before her periods needs a new referral. The same was given. (2) Panic attacks: Code(s): F41.0 - Panic disorder [episodic paroxysmal anxiety] Category: Medical Plan: Gets want to do attacks a month. Unwilling to go on long-acting and long-term medications. Advised that no more than 5 anxiolytics will be given per month. She can control her symptoms with Xanax 0.25 mg, 5 pills every month then this prescription will be continued. No more than 5 pills will be given every month. Patient agrees. Orders: Orders Basic Metabolic Panel Today E66.9 - Obesity, unspecified Complete Blood Count no Diff Today E66.9 - Obesity, unspecified Lipid Panel Today E66.9 - Obesity, unspecified Liver Panel Today E66.9 - Obesity, unspecified Thyroid Stimulating Hormone Today E66.9 - Obesity, unspecified UA and rflx microscopic Today E66.9 - Obesity, unspecified Referrals General Surgery Referral E66.9 - Obesity, unspecified Medications: New alprazolam (Xanax) 0.25 mg PO DAILY PRN 5 tabs 0RF anxiety Discontinued amoxicillin-pot clavulanate 875-125 mg (Augmentin) Discontinued Reason: Patient no longer taking 1 tab PO BID 14 tabs 0RF ketorolac Patient received Toradol in the emergency room. Discontinued Reason: Patient no longer taking 10 mg PO Q6H 5 days PRN 20 tabs 0RF pain
[2025-01-25 14:07] VITALS: BP 112/59; PULSE 96; RESP 14; TEMP 36.7; O2SAT 96; BMI 45.5
--- OUTSIDE RECORDS SUMMARY | 2025-01-25 16:28 | XMS_ITS | Encounter Summary ---
Author Organization [facility] Address [address] [place] [address] [place] [phone] Phone Care Team Providers Care Field Laborer Name Role Phone Tye Montaño MD Primary Care Provider [phone] Encounter Details Date Type Department Care Team (Late st Contact Info) Description 07/14/2023 Procedure Pass [facility] Procedures [address] [place] [address] Social History Tobacco Use Types Packs/Day Years Used Date Smoking Tobacco: Every Day Cigarettes 0.5 12.7 Started: 2012 Smokeless Tobacco: Never Comments:5 a day Alcohol Use Standard Drinks/Week Comments Not Currently 0 (1 standard drink = 0.6 oz pur e alcohol) Education Answer Date Recorded Are you interested in more education? Not on franny e 09/14/2022 Are you concerned about learning? Not on file 09/14/2022 No 09/14/2022 No 09/14/2022 Food Answer Date Recorded Within the past 6 months we worried whether our food would run out before we got money to buy more. Never True 07/13/2023 Within the past 6 months the food we bought just didn't last and we didn't have enough money to get more. Never True Residential Stability Answer Date Recor ded What is your housing situation today? I have wilder sing 07/13/2023 How many times have you move d in the past 12 months? Zero (I did not move) 07/13/2023 Paying for Meds Answer Date Recorded Do you have trouble paying for medicines? No 07/13/2023 Paying Utility Bills Answer Date Record ed Do you have trouble paying your heating or elect ricity bill? No 07/13/2023 Transportation Answer Date Recorded Has the lack of transportati on kept you from medical appointments or from getting medications? No 07/13/2023 Digital Access Answer Date Recorded No 07/13/2023 Yes 07/13/2023 Do you have reliable internet access at home? Ye s 07/13/2023 Do you have a device (e.g., phone, tablet, computer) with a working camera? Yes 07/13/2023 Intimate Partner Violence Answer Date R ecorded Are you denied basic needs s uch as food, clothing, or medical care? No 07/15/2023 In the past 12 months have y ou been in a relationship with a person who hurts, threatens, or tries to control you? No 07/15/2023 Are you denied basic needs s uch as food, clothing, or medical care? No 07/15/2023 In the past 12 months have y ou been in a relationship with a person who hurts, threatens, or tries to control you? No 07/15/2023 Comments No Sex and Gender Information Value Date Recorded Sex Assigned at Female 04/24/2020 9:48 PM EST Legal Sex Female 9:34 PM EST Gender Identity Female 04/24/2020 9:48 PM EST Sexual Orientation Straight 04/24/2020 9: 48 PM EST documented as of this encounter Functional Status * Calculated C-SSRS Risk Score (Lifetime/Recent) Answer Date of Assessment Author No Risk Indicated 07/15/2023 4:00 PM Arlen Welch RN * [place] Suicide Severity Rating Scale (Screener/Recent Self-Report) Question Answer Date of Assessment Author 1. Wish to be (Past 1 Month) No 024 4:00 PM Arlen Welch RN 2. Non-Specific Active Suici jessica Thoughts (Past 1 Month) No 07/15/2023 4:00 PM Laura Welch RN 6. Suicidal Behavior (Lifetime) No 4:00 PM Arlen Welch RN documented as of this encounter Plan of Treatment Not on file documented as of this encounter Visit Diagnoses Not on filedocumented in this encounter Care Teams Field Laborer Relationship Specialty Start Date End Date Tye Montaño MD [address] [place] [address] PCP - General Internal Medicine 03/25/23 documented as of this encounter Additional Source Comments The information contained in this document represents components of the legal health record. It is not the complete legal health record.[facility]
--- OUTSIDE RECORDS SUMMARY | 2025-01-25 16:28 | XMS_ITS | Encounter Summary ---
Author Organization [facility] Address [address] [place] [phone] Phone Care Team Providers Care Documentation Specialist Name Role Phone Pcp, Unknown Primary Care Provider Tye Ann MD Primary Care Provider [phone]- [phone] Encounter Details Date Type Department Care Team (Late st Contact Info) Description 07/24/2021 Procedure Pass [place] Admitting Dept - Virtual Department [address] [place] [address] Social History Tobacco Use Types Packs/Day Years Used Date Smoking Tobacco: Every Day Cigarettes 0.5 12.7 Started: 2012 Smokeless Tobacco: Never Comments:5 a day Alcohol Use Standard Drinks/Week Comments Not Currently 0 (1 standard drink = 0.6 oz pur e alcohol) Comments Yes Sex and Gender Information Value Date Recorded Sex Assigned at Female 04/24/2020 9:48 PM EST Legal Sex Female 9:34 PM EST Gender Identity Female 04/24/2020 9:48 PM EST Sexual Orientation Straight 04/24/2020 9: 48 PM EST documented as of this encounter Plan of Treatment Not on file documented as of this encounter Visit Diagnoses Not on filedocumented in this encounter Care Teams Documentation Specialist Relationship Specialty Start Date End Date Pcp, Unknown PCP - General 04/24/20 03/24/23 Tye Montaño MD [address] [place] [id number] PCP - General Internal Medicine 03/25/23 documented as of this encounter Additional Source Comments The information contained in this document represents components of the legal health record. It is not the complete legal health record.[facility]
--- OUTSIDE RECORDS SUMMARY | 2025-01-25 16:28 | XMS_ITS | Clinical Summary ---
Author Organization [facility] Address [address] [facility] [address] [facility] [address] [place] [address] Care Team Providers Care Planer Chain Offbearer Name Role Phone Unavailable Primary Care Provider Unavailabl e Allergies No known active allergies Medications acetaminophen (Tylenol) 500 MG tabletIndication s:Dental caries into pulp Take 1 tablet (500 mg) by mouth every 6 (six) hours if needed for mild pain for up to 20 doses. 20 tablet 05/04/2024 Active ibuprofen 600 MG tabletIndication s:Dental caries into pulp Take 1 tablet (600 mg) by mouth every 6 (six) hours if needed for mild pain for up to 20 doses. 20 tablet 05/04/2024 Active Active Problems Problem Noted Date Diagnosed Date Dental caries into pulp 05/04/2024 Social History Tobacco Use Types Packs/Day Years Used Date Smoking Tobacco: Former Cigarettes Passive Smoke Exposure: Never Smokeless Tobacco: Former Tobacco Cessation:Counseling Given: Not Answered Alcohol Use Standard Drinks/Week Comments Defer 0 (1 standard drink = 0.6 oz pur e alcohol) Comments Unknown Sex and Gender Information Value Date Recorded Sex Assigned at Female 05/04/2024 9:45 AM EST Legal Sex Female 9:44 AM EST Gender Identity Female 05/04/2024 9:45 AM EST Sexual Orientation Straight 05/04/2024 9: 45 AM EST Plan of Treatment Health Maintenance Due Date Last Done Comments Dental Oral Exam 1993 Dental Prophylaxis 1993 Dental X-Ray: Bitewings 1993 Depression Screening 1993 HIV Screening 1993 Lipid Panel 1993 SDOH Screening 1993 Disability Screening 1993 Alcohol/Substance Use Screening 2005 Family Planning (PISQ) 2008 HPV Vaccines (1 - 3-dose series) 2008 Hepatitis C Screening 08/09/2011 Hepatitis B Vaccines (1 of 3 - 19+ 3-dose series) 2012 Pap Smear 2014 Cervical Cancer Screening 08/09/2023 HPV/Cotest 08/09/2023 COVID-19 Vaccine (1 - 2023-2 5 season) 2025 Influenza Vaccine (#1) 2025 Tobacco Screening 05/04/2025 05/04/2024 Dental X-Ray: Full Mouth 05/05/2027 05/04/2024 DTaP/Tdap/Td Vaccines (3 - T d or Tdap) 06/10/2033 06/10/2023, 10/06/2020 Zoster Vaccines (1 of 2) 08/09/2043 RSV Patients and Patients Aged 60 years or older Completed 06/10/2023 HIB Vaccines Aged Out No longer eligi ble based on patient's age to complete this topic Hepatitis A Vaccines Aged Out No long er eligible based on patient's age to complete this topic IPV Vaccines Aged Out No longer eligi ble based on patient's age to complete this topic Meningococcal B Vaccine Aged Out No l onger eligible based on patient's age to complete this topic Meningococcal Vaccine Aged Out No victor manuel cheko eligible based on patient's age to complete this topic Pneumococcal Vaccine: Pediatrics (0 to 5 Years) and At-Risk Patients (6 to 49) Years Aged Out No longer eligible b ased on patient's age to complete this topic RSV under 20 months Aged Out No longe r eligible based on patient's age to complete this topic Rotavirus Vaccines Aged Out No longer eligible based on patient's age to complete this topic Procedures Procedure Name Priority Date/Time Associated Diagnosis Comments PANORAMIC RADIOGRAPHIC IMAGE Routine 05/04/2024 11:30 AM EST from Last 3 Months or Most Recently Relevant to Health Maintenance Insurance [facility] MEDICAID STAND ADULT
--- OUTSIDE RECORDS SUMMARY | 2025-01-25 16:28 | XMS_ITS | Clinical Summary ---
Author Organization [facility] Address [address] [place] [id number] Phone Care Team Providers Care Seasonal Customer Service Associate Name Role Phone Tye Montaño MD Primary Care Provider [phone]- [phone] Allergies Active Allergy Reactions Criticality Noted Date Comments Nickel Itching 02/27/2018 Other reaction(s): Rash/Dermatitis Medications ibuprofen (ADVIL,MOTRIN) 600 MG tablet Take 1 tablet (600 mg total) by mouth every 6 (six) hours as needed. 80 tablet 07/17/2023 Active acetaminophen (TYLENOL) 500 MG tablet Take 500 mg by mouth every 6 (six) hours as needed. 05/04/2024 Active Active Problems Problem Noted Date Diagnosed Date Morbid obesity with BMI of 45.0-49.9, adult 04/19 Assessment & Plan (06/29/2024 11:31 AM EST): This is a 28-year-old woman who is interested in laparoscopic sleeve gastrectomy for weight loss. The patient still needs to complete 5 out of 5 nutrition classes, 2 out of 2 behavioral health assessments and all of her required testing with the exception of the chest x-ray. She is doing well with weight loss. She needs increase her water intake to at least 64 ounces of water daily basis. She should do 30 minutes of cardiovascular exercise at least 3 times per week. She will follow-up with the dietitian as already scheduled for July 15 and follow-up with me again in 6 weeks timeframe. She is not stable and is considered morbidly obese. Assessment & Plan (05/05/2024 4:00 PM EST): This is a 28 YO patient who is interested in weight loss surgery, specifically the laparoscopic sleeve gastric for weight loss. We have discussed gastric bypass and sleeve gastrectomy surgery in detail including risks, benefits, and alternatives. We have also discussed requirements preop and post op. They understands that they are required to lose about 10 percent of their current weight which is 26 lbs. The goal weight at the time of submission to the insurance company will be 232 pounds. In an effort to help the patient to lose weight I have prescribed an eating plan which will consist of a protein shake or a protein bar or Tajik yogurt or cottage cheese to be consumed at 9 AM and 3 PM daily. The patient will consume 4 ounces of protein with 6 ounces of vegetable or small salad with a noncreamy salad dressing of not more than 2 tablespoons at 12 PM and 6 PM daily. At the 6 PM meal the patient may have 1/2 cup of carbohydrate. We have ordered required labs and testing. The patient will attend 5 nutrition classes, 2 appointments, and dietitian consultation. The patient will need to obtain a medical clearance letter from the primary care doctor prior to submission to the insurance company. The patient will see the dietitian in 2 and 4 weeks and I will follow up with them again in 6 weeks to ensure compliance with the meal plan. The patient will continue current medications as reviewed. They are not stable and are considered morbidly obese. I spent 57 minutes with this patient which also included documentation. The patient is working on quitting smoking and must quit smoking for 3 months prior to being a surgical weight loss candidate. I have ordered nicotine studies to be completed to document that she has quit smoking. Preoperative examination 05/05/2024 Smoker 05/05/2024 hemorrhage 07/15/2023 Overview (07/15/2023): 697cc blood loss during c/s HGB 12--> 9 Pt not feeling SOB or light headed with ambulation Prescribe iron on discharge Assessment & Plan (07/15/2023 6:12 PM EST): 697cc blood loss during c/s HGB 12--> 9 Pt not feeling SOB or light headed with ambulation Prescribe iron on discharge Normal intrauterine , antepartum 2023 38 weeks gestation of 06/25/2023 Assessment & Plan (06/25/2023 1:04 PM EST): Patient doing well. Denies VB, DFM, regular ctx. Patient unsure if she was leaking fluid, denies a large gush of fluid or continued leaking SROM check negative (negative pooling, negative Nitrazine, negative ferning) Cervix L/T/C on exam BPP 8 today Warning signs/symptoms reviewed Mother positive for group B Streptococcus coloni zation 06/13/2023 Overview (06/13/2023): Prophylaxis tx during labor Elevated blood pressure affe cting in third trimester, antepartum 06/10/2023 Assessment & Plan (06/27/2023 11:16 PM EST): Mildly Elevated BP in todays visit Denies any NAPIER, epigastric pain, Visual changes, and sudden onset of swelling. -Will get HEELP labs today Assessment & Plan (06/17/2023 1:16 PM EST): Normotensive today Obesity in , antepartum, third trimeste r 04/23/2023 Assessment & Plan (06/17/2023 1:16 PM EST): U/S today 86%. No further growth ultrasounds indicated. Assessment & Plan (05/27/2023 1:15 PM EST): Last growth at 92nd %ile, has repeat scheduled for n.v. S=D today, position difficult to ascertain but no suspicion for breech. Assessment & Plan (05/15/2023 3:40 PM EST): BPP 8 today with growth at the 92%. We reviewed that her GTT was normal at 137 but on the higher end. Recommended considering diabetic diet. Decreasing carbs and sugars and increasing vegetables and protein. She feels that she can work on that. Assessment & Plan (05/01/2023 11:07 AM EST): Ultrasound today shows EFW of 1753 g which is at the 60th percentile. Assessment & Plan (04/23/2023 12:05 PM EST): Pre- BMI greater than 40 Weekly BPP starting at 34 weeks ordered through 36 weeks ( ) needs BPPs ordered for 37 weeks to delivery Growth US ordered for now and at 34 weeks ( ) needs growth US ordered for 38 weeks Rh negative, antepartum 02/21/2023 Overview (07/15/2023): Plan on RhoGAM at 28 weeks. Given 04/23/23 Given 07/14/23 Assessment & Plan (05/01/2023 11:05 AM EST): Received RhoGAM on April 23. Assessment & Plan (04/23/2023 12:00 PM EST): Antibody screen negative Rhogam given today Assessment & Plan (04/17/2023 1:00 PM EST): Rhogam at nurse visit later this week after lab draw Assessment & Plan (03/27/2023 1:03 PM EST): Discussed Rhogam at n.v., advised labs should be completed before that time, she is aware. Class 3 severe obesity in adult 02/03/2023 Overview (02/03/2023): Obesity in (BMI >30) BMI at Intake: 44.5 Date Obesity plan of care discussed: 01/29/2023 BMI > 50 (at 36 weeks or before) transfer to tertiary care * Recommend daily baby aspirin if another risk factor is present (nulliparity, family h/o pre-eclampsia in mother or sister, age >= 35, IVF , previous with SGA, previous stillbirth, interval >= 10 years between pregnancies) * If BMI 40 or greater discuss policy w patient * first trimester screen for diabetes - HgbA1c or 1-hr glucose tolerance test * Nutrtion counseling * 11-20lb weight gain * Growth sono q 4 wks if fundal height not reliable, after 28 weeks * Induction only if indicated * PP lovenox according to guidelines Assessment & Plan (04/17/2023 12:51 PM EST): TWG 14 lbs Assessment & Plan (02/21/2023 2:27 PM EDT): Her weight has been relatively stable. Reviewed BMI cutoff of 50 for delivery at [facility]. Assessment & Plan (02/03/2023 4:03 PM EDT): Reviewed BMI cutoff for delivery at [facility]. Recommended max weight gain of 20 pounds. High risk multigravida in third trimester 2022 Overview (06/17/2023): CNM No OB-CMI score has been filled out for this encounter. Group PN care? no screening cfDNA negative Baby ASA? Yes Rh neg GC/Chlam neg PAP Unclear pap history. Please do pap Flu declined COVID-19 declined Hgb 11.1 GTT 137 Repeat RPR NR Tdap - done 06/10 RSV - * EPDS * PPBC * GBS POS Feeding Plan Breast Baby Zyaire Assessment & Plan (07/01/2023 11:31 AM EST): She is feeling well overall. She feels ready at home for the baby and family is in area to help. She is hoping to avoid IOL, reviewed natural methods to stimulate labor. Declines SVE today. Reviewed GBS+ and glenn for IV antibiotics in labor, she is accepting of this. 3rd tri comforts measures reviewed. Disc steps to take toward optimal health in . Reviewed s/s labor, danger signs, when/how to call. Assessment & Plan (06/17/2023 1:21 PM EST): Reviewed GBS positive results today. Discussed u/s results of baby 86%. Patient would like to avoid IOL if possible. 3rd tri comforts measures reviewed. Disc steps to take toward optimal health in . Reviewed s/s labor, danger signs, when/how to call. Assessment & Plan (06/27/2023 11:17 PM EST): Katharina is a 27 y.o. at 36w2d states she feels well today. Denies any concerns at this time. Denies any LOF/Vaginal bleeding/Ucs. -Discussed FM at this [facility] and [facility] -Review signs and symptoms of Labor and when/how to contact midwives -GBS collected today -Advised on weekly visits from now on. -Reviewed end of discomforts and comfort measures. -We discussed PP BC. Assessment & Plan (05/27/2023 1:14 PM EST): Katharina is feeling generally ok but sleep has been challenging recently due to hip pain. Discussed sleep positions, stretches she can try, other symptomatic relief. Would like TDAP at next visit. Will consider RSV vaccine, info given in AVS. Had not gotten pre-registration packet. This was reviewed today and discussed process for contacting practice with start of active labor at her request. Encouraged her to view video tour of CBC online. Assessment & Plan (05/15/2023 3:40 PM EST): Katharina is doing well. Baby is active. Feels occasional cramps in her lower abdomen but nothing regular. Plans Tdap at next visit. Assessment & Plan (05/01/2023 11:17 AM EST): She notes good movement. She denies any vaginal bleeding, leakage of fluid, or regular contractions. Overall, she is doing well. Tdap next visit. EPDS of 5. Assessment & Plan (04/17/2023 1:00 PM EST): Katharina is here with her partner. She has been feeling leaking fluid. It happens every once in a while and does soak through her panties. Also feels that the baby has been moving less the past few days. Speculum exam with negative pool, negative fern, negative nitrazine. Cervix visually closed. Normal NST. She feels reassured. movement counts reviewed. She has not done labs yet. Recommended that she schedule a nurse visit for later this week. She will do labs prior to that visit and then have rhogam at visit. Assessment & Plan (03/27/2023 1:05 PM EST): Here with her partner. Feeling OK, just starting to feel uncomfortable stretching and sleep has been become more challenging. Discussed strategies for optimizing sleep. Recommended walking or other low impact physical activity, stretching daily. Has questions about further ultrasounds in . We discussed that there are no further routine ultrasounds. We discussed that U/S is sometimes ordered if position or growth is difficult to determine based on belly check, and that this is more common with individuals with larger bodies. She would welcome another U/S. Discussed and ordered GTT/CBC/RPR. Discussed flu shot, she declines. Baby has been very active. Discussed CNM vs MD care, had both listed - prefers CNM care at this time. Assessment & Plan (02/21/2023 2:24 PM EDT): She is feeling flutters. She denies any vaginal bleeding or LOF. The anatomic survey was grossly normal today. The cervical length is 4 cm by transabdominal scanning. Still awaiting FOB labs from [facility]. CBC and glucola at next visit. Assessment & Plan (02/06/2023 3:51 PM EDT): Katharina has been feeling some cramping for the past couple of days. A little more intense than before. Feels well today. No cramping currently. Is anxious due to recurrent loss. Would like to hear baby's heart. Cervical length normal at [facility] on 01/31. Repeat ordered to be done here but was not scheduled. Offered digital exam. She declines. Discussed increased hydration and support belt. She will try those things. Cervical length check scheduled for later this week. Assessment & Plan (02/03/2023 4:00 PM EDT): She has started to feel some flutters. She denies any vaginal bleeding or leakage of fluid. We are still waiting for most of her records from her previous practice. Recurrent loss 06/05/2021 Assessment & Plan (02/03/2023 4:04 PM EDT): She reports a history of recurrent loss. She notes that one of her pregnancies ended approximately 5 months of gestation. She has been getting ultrasounds at [facility] for cervical length. She is due for repeat ultrasound this week. She notes that they have been normal thus far. She did discuss cerclage with [facility] but they are following expectantly at the present time which is reasonable. She has a follow-up ultrasound later this week which I encouraged her to keep at [facility]. We can continue to do cervical length checks every 2 weeks until 23 to 24 weeks at which time she can be followed clinically. Assessment & Plan (07/17/2021 1:37 PM EST): Recommend recurrent loss evaluation with consideration for referral to [facility]. Can start lab eval at follow up visit. Assessment & Plan (06/19/2021 3:39 PM EST): G1 with spontaneous loss at 5 months (history sounds like cervical insufficiency). G2-4 were first trimester losses. CL 2.8 cm today. Will refer for MFM consult, order placed. Assessment & Plan (06/05/2021 4:26 PM EST): Discussed indications for Rhogam and reason why it is given. Advised that early Rhogam does not prevent miscarriage and is not indicated in this setting given no vaginal bleeding since last . Discussed progesterone applications in : no clear evidence to suggest that it will prevent miscarriage. Advised that progesterone can be used for patient's with shortened cervix or history of delivery. Advised against use now. Should current end in miscarriage, recommend eval for recurrent loss prior to conceiving again. Missed Resolved Problems Problem Noted Date Diagnosed Date Resolved Date Encounter for supervision of normal first in third trimester 07/30/2023 07/30/2023 Assessment & Plan (07/30/2023 5:27 PM EDT): Katharina is a 27 y.o. at 40w4d states she feels well today. Denies any concerns at this time. Denies any LOF/Vaginal bleeding/Ucs. -Discussed FM at this [facility] and [facility] -Review signs and symptoms of Labor and when/how to contact midwives -Reviewed end of discomforts and comfort measures. -We discussed natural ways of promoting labor -Advised on postdates surveillance and briefly discussed IOL 29 weeks gestation of 04/23/2023 05/15/2023 Assessment & Plan (04/23/2023 12:10 PM EST): Patient doing well. Denies VB, LOF, DFM, ctx. 28 week labs reviewed. CBC without evidence of anemia, syphilis pending 1 hr gtt within normal limits Warning signs/symptoms reviewed Positive blood test 06/05/2021 07/17/2021 Assessment & Plan (06/05/2021 4:27 PM EST): Recommend HCG quant today to establish interval change compared to previous test on 05/24/20. If above ultrasound threshold, can proceed with imaging to confirm viability. Advised pt that we will contact her with HCG quant results to determine timing of ultrasound. Immunizations Immunization Administration Dates Next Due RSV Vaccine (bivalent) 06/10/2023 Rho (D) Immune Globulin 07/14/2023,04/23/2023, Tdap 06/10/2023,10/06/2020 Family History Medical History Relation Comments ADD / ADHD Brother Autism Brother Heart attack Father Sleep apnea Father Bipolar disorder Maternal Grandmother Heart murmur Mother Heart attack Paternal Grandfather Glaucoma Paternal Grandmother No Known Problems Sister Relation Status Comments Brother Alive Father Alive Maternal Grandfather Alive Maternal Grandmother Alive Mother Alive Paternal Grandfather Paternal Grandmother Alive Sister Alive Social History Tobacco Use Types Packs/Day Years Used Date Smoking Tobacco: Every Day Cigarettes 0.5 12.7 Started: 2012 Smokeless Tobacco: Never Tobacco Cessation:Ready to Q uit: Not Asked; Counseling Given: Not Answered Comments:5 a day Alcohol Use Standard Drinks/Week Comments Yes 0 (1 standard drink = 0.6 oz pur e alcohol) once monthly 750 ml Education Answer Date Recorded Are you interested [...] Orientation Straight 04/24/2020 9: 48 PM EST 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 Not on file Not on file Not o n file Last Filed Vital Signs Vital Sign Reading Time Taken Comments Blood Pressure 110/70 06/29/2024 11:00 AM EST Pulse 63 06/29/2024 11:00 AM EST Temperature 36.6 C (97.8 F) 06/29/2024 11:00 AM EST Respiratory Rate 18 07/17/2023 7:47 AM EST Oxygen Saturation 98% 06/29/2024 11: 00 AM EST Inhaled Oxygen Concentration - - Weight 113.3 kg (249 lb 12.8 oz) 2024 11:00 AM EST Height 157.5 cm (5' 2.01 ) 06/29/2024 1 1:00 AM EST Body Mass Index 45.68 06/29/2024 11:00 AM EST Plan of Treatment Health Maintenance Due Date Last Done Comments DEPRESSION SCREENING 2005 PNEUMOCOCCAL VACCINES (0-49 years) (1 of 2 - PCV) 2012 PAP SMEAR 2014 INFLUENZA VACCINE (#1) 2024 BLOOD PRESSURE 12/27/2024 06/29/2024 COVID-19 VACCINE (1 - 2023-2 5 season) 2025 SMOKING Hx and SMOKELESS TOBACCO SCREENING 06/29/2025 06/29/2024 Adult Td,Tdap Booster 06/10/2033 06/10/2023 , 10/06/2020 HEPATITIS C SCREENING Completed 01/16/2023 HIV ONE-TIME SCREENING (18-6 5 YEARS) Completed 01/16/2023 HEPATITIS A VACCINES Aged Out No long er eligible based on patient's age to complete this topic HIB VACCINES Aged Out No longer eligi ble based on patient's age to complete this topic MENINGOCOCCAL VACCINES (ACWY) Aged Out No longer eligible based on patient's age to complete this topic MENINGOCOCCAL VACCINES (B) Aged Out N o longer eligible based on patient's age to complete this topic Medical Devices Not on file Procedures Procedure Name Priority Date/Time Associated Diagnosis Comments HEPATITIS C ANTIBODY, QUALITATIVE Routine 01/16/2023 from Last 3 Months or Most Recently Relevant to Health Maintenance Results * Hepatitis C antibody, qualitative (01/16/2023) Hepatitis C Antibody, qualitatitve - External neg 01/16/2023 us Historical Provider LAB BLOOD ORDERABLES Brina l Result from Last 3 Months or Most Recently Relevant to Health Maintenance Insurance [facility] [employer] [facility] [employer] [facility] [employer] A[employer] [facility] [employer] Advance Directives For more information, please contact: [phone] (9AM - 5PM [facility], Saturday-Saturday) Documents on File Type Date Recorded Patient Life Skills Consultant Expl anation Healthcare Proxy 07/18/2023 12:30 PM * Full Code (Latest Code Status on File) Date Activated Date Inactivated Comments 07/14/2023 1:51 AM Question Answer Comments Code Status Confirmed With: Patient * Full Code Date Activated Date Inactivated Comments 07/13/2023 3:53 AM 07/14/2023 1:49 AM Question Answer Comments Code Status Confirmed With: Patient Care Teams Seasonal Customer Service Associate Relationship Specialty Start Date End Date Tye Montaño MD [address] [place] [id number] PCP - General Internal Medicine 03/25/23 Additional Source Comments The information contained in this document represents components of the legal health record. It is not the complete legal health record.[facility]
== END 2025-01-25 14:36 | disposition home or self-care (01) ==
LOC: HO.HMCSH 14:07
PROVIDERS: PCP Internal Medicine; Visit Provider Internal Medicine
DX: E66.9 Obesity, unspecified (principal); F41.0 Panic disorder [episodic paroxysmal anxiety]

== ENCOUNTER → 2025-01-25 14:07 | Outpatient (BNVA) | payer MEDICAID, SELFPAY | PROVIDERS: PCP Internal Medicine; Visit Provider Internal Medicine | DX: E66.9 Obesity, unspecified (principal); F41.0 Panic disorder [episodic paroxysmal anxiety]; Z68.45 Body mass index [BMI] 70 or greater, adult | CPT/HCPCS: 99202 ==

== ENCOUNTER 2025-03-22 08:09 | Outpatient (AMB) | payer OTHER, SELFPAY ==
--- OUTSIDE RECORDS SUMMARY | 2025-03-22 08:21 | XMS_ITS | Encounter Summary ---
Author Organization [facility] Address [address] [place] [address] [place] [phone] Phone Care Team Providers Care Rainbow Trout Farm Manager Name Role Phone Tye Montaño MD Primary Care Provider [phone]- [phone] Encounter Details Date Type Department Care Team (Late st Contact Info) Description 07/14/2023 Procedure Pass [facility] L&D Procedures [address] [place] [address] Social History Tobacco Use Types Packs/Day Years Used Date Smoking Tobacco: Every Day Cigarettes 0.5 12.8 Started: 2012 Smokeless Tobacco: Never Comments:5 a [...] 07/15/2023 4:00 PM Arlen Welch RN * [place] Suicide Severity Rating Scale (Screener/Recent Self-Report) Question [...] on filedocumented in this encounter Care Teams Rainbow Trout Farm Manager Relationship Specialty Start Date End Date Tye Montaño MD [address] [place] [address] PCP - General Internal Medicine 03/25/23 documented as of this encounter Additional Source Comments The information contained in this document represents components of the legal health record. It is not the complete legal health record.[facility]
--- OUTSIDE RECORDS SUMMARY | 2025-03-22 08:21 | XMS_ITS | Clinical Summary ---
Author Organization [employer] Address [address] [place] [address] Care Team Providers Care Gem Setter Name Role Phone Unavailable Primary Care Provider [...] Most Recently Relevant to Health Maintenance Insurance [facility] MEDICAID STAND ADULT
--- OUTSIDE RECORDS SUMMARY | 2025-03-22 08:21 | XMS_ITS | Encounter Summary ---
Author Organization [facility] Address [address] [place] [phone] Phone Care Team Providers Care Plate Inspector Name Role Phone Pcp, Unknown Primary Care Provider Tye Ann MD Primary Care Provider +1- [phone] Encounter Details Date Type Department Care Team (Late st Contact Info) Description 07/24/2021 Procedure Pass [place] Admitting Dept - Virtual Department [address] [place] [address] Social History Tobacco Use Types Packs/Day Years [...] on filedocumented in this encounter Care Teams Plate Inspector Relationship Specialty Start Date End Date Pcp, Unknown PCP - General 04/24/20 03/24/23 Tye Montaño MD [address] [place] [id number] PCP - General Internal Medicine 03/25/23 documented as of this encounter Additional Source Comments The information contained in this document represents components of the legal health record. It is not the complete legal health record.[facility]
--- OUTSIDE RECORDS SUMMARY | 2025-03-22 08:21 | XMS_ITS | Clinical Summary ---
Author Organization [facility] Address [address] [place] [id number] Phone Care Team Providers Care Document Preparer Microfilming Name Role Phone Tye Montaño MD Primary Care Provider +1- [phone] Allergies Active Allergy Reactions Criticality Noted Date [...] protein shake or a protein bar or Persian yogurt or cottage cheese to be consumed [...] BMI cutoff of 50 for delivery at [facility]. Assessment & Plan (02/03/2023 4:03 PM EDT): Reviewed BMI cutoff for delivery at [facility]. Recommended max weight gain of 20 pounds. [...] * EPDS * PPBC * GBS POS Infant Feeding Plan Breast Baby Zyaire Assessment & [...] bleeding/Ucs. -Discussed FM at this [place] and [facility] -Review signs and symptoms of Labor and [...] transabdominal scanning. Still awaiting FOB labs from [facility]. CBC and glucola at next visit. Assessment & Plan (02/06/2023 3:51 PM EDT): Katharina has been feeling some cramping for the past couple of days. A little more intense than before. Feels well today. No cramping currently. Is anxious due to recurrent loss. Would like to hear baby's heart. Cervical length normal at [facility] on 01/31. Repeat ordered to be [...] gestation. She has been getting ultrasounds at [facility] for cervical length. She is due for repeat ultrasound this week. She notes that they have been normal thus far. She did discuss cerclage with [facility] but they are following expectantly at the present time which is reasonable. She has a follow-up ultrasound later this week which I encouraged her to keep at [facility]. We can continue to do cervical [...] 0.5 12.8 Started: 2012 Smokeless Tobacco: Never Tobacco Cessation:Ready [...] PRESSURE 12/27/2024 06/29/2024 COVID-19 VACCINE (1 - 2024-2 6 season) 2025 SMOKING Hx and SMOKELESS TOBACCO [...] neg 01/16/2023 us Historical Provider LAB BLOOD BKR ORDERABLES Final Result from Last 3 Months or Most Recently Relevant to Health Maintenance Insurance [facility] [employer] B[employer] [facility] ACO [facility] [employer] ALLANCE ACO [facility] [employer] ALLANCE ACO Advance Directives For more information, please contact: [phone] (9AM - 5PM [facility], Saturday-Saturday) Documents on File Type Date Recorded 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 Healthcare Proxy 07/18/2023 12:30 PM * Full Code (Latest Code Status on File) Date Activated Date Inactivated Comments 07/14/2023 1:51 AM Question Answer Comments Code Status Confirmed With: Patient * Full Code Date Activated Date Inactivated Comments 07/13/2023 3:53 AM 07/14/2023 1:49 AM Question Answer Comments Code Status Confirmed With: Patient Care Teams Document Preparer Microfilming Relationship Specialty Start Date End Date Tye Montaño MD [address] [place] [id number] PCP - General Internal Medicine 03/25/23 Additional Source Comments The information contained in this document represents components of the legal health record. It is not the complete legal health record.[facility]
--- NOTE | 2025-03-22 11:34 | MHC.OFFVISWM ---
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: Details: Start time: 11.21am, End time: 12.06pm ?I spent 40 minutes speaking with the patient on the phone plus an additional 5 minutes reviewing and updating records for a total of 45 minutes HPI Comments Details: Previous weight loss efforts: Semaglutide (2 months: lost 20lbs), Other program Wakes up: 10am, Sleeps: 1.30am Breakfast: skips Lunch: 1.30pm (salad, salmon balls with rice) Dinner: 7pm (steak, pork or chicken with vegetables) Snacks: 11am (cheese sticks), 4pm (same), 10pm (chips with salsa, cheese sticks) Exercise: none Beverages: Coffee (Decaf occasionally), Tea: none, Soda: Coke/Sprite (large cup/day), Juice: daily, ETOH: 1/month ON LICENSE OF [facility] Medical History (Updated 03/22/25 @ 11:47 by Suresh Byrd MD) Morbid obesity Panic attacks Obesity History of multiple miscarriages No known health problems Surgical History (Updated 03/22/25 @ 11:37 by Suresh Byrd MD) History of delivery Family History (Updated 01/25/25 @ 14:13 by JOSAFAT Verdugo) Father Heart attack Prediabetes Mother IBS (irritable bowel syndrome) Social History (Updated 01/25/25 @ 14:14 by JOSAFAT Verdugo) Housing: Apartment Alcohol intake: current Alcohol intake frequency: holidays/special occasions only Patient Tobacco Use Status: Current everyday Tobacco user Cigarettes Per Day: 10 service: No Current occupational status: unemployed Cognitive needs: No Hearing needs: No Vision needs: No Telehealth Telehealth Telehealth Platform: Telephone Location of provider rendering services: practice address Location of patient: address on file Patient Identification confirmed using: Name, : Yes Telehealth method: voice only Patient verbally consented to treatment: Yes Patient verbally consented to billing insurance company: Yes Patient informed of any privacy concerns related to visit: Yes Minutes spent on Phone/Video with Pt.: 45 Assessment & Plan Assessment & Plan (1) Morbid obesity: Code(s): E66.01 - Morbid (severe) obesity due to excess calories Category: Medical Plan: 1.? Plan for lap sleeve gastrectomy. If diaphragmatic or ventral hernias are present at time of surgery, these will be repaired laparoscopically as well. I emphasized the importance of close follow-up, adherence to instructions and good communication. The surgery does not replace the need to change your lifestlyle which is the cause of the obesity problem. The surgery provides the motivation to try again to change your lifestyle, it reduces the appetite and make the transition to a better lifestyle easier and doubles the amount of weight you would lose compared to doing the lifestyle change without the surgery. You will need to be on a liquid diet with protein shakes for 2 weeks before surgery to maximize weight loss and boost your nutritional status to recover better from surgery and also for the first two weeks after surgery to let the stomach heal before we introduce other foods. After the first 2 weeks we will introduce protein bars and soft foods like scrambled eggs, cottage cheese and yogurt and after the 6th week will introduce meat, fish and cooked vegetables in small amounts. Over time you should be able to eat everything in small amounts. Side effects like nausea, vomiting, heartburn or abdominal pain are not common in the practice unless you are not following in the practice. This operation requires lifetime commitment to following in our practice and communication with me. You will much less weight and experience side effects if you don?t communicate or not following in the practice. Complications are rare and in our practice is about 1/10 of the national average. However, you can develop bleeding that may require transfusion (hasn?t happened for year in the practice), you may from complications (we did not have any deaths in the practice) and infections. Infections are usually a result of breakdown in communication or not understanding or following directions correctly. They are difficult to treat, they can happen during the first 6 weeks, they may require to be in the hospital for weeks or even months, not being able to eat by mouth and you may have drains and surgeries to try and correct the issue. Other risks and complications include possible conversion to an open procedure, leaks, small bowel obstruction, blood clots, cardiac, or pulmonary complications, as numberer and wirer complications such as ulcers, insufficient weight loss and vitamin deficiencies. 2. Nutritional counseling. Start with one premade PREMIER protein (buy at [employer] or [employer]) shake (mix 4oz of Premier mixed with 4oz low fat unsweetened almond milk each) at 11am-1pm, one protein bar (Celebrate protein bar, buy online with the link I sent) at 2pm-4pm, another premade PREMIER protein shake (mix 4oz of Premier mixed with 4oz low fat unsweetened almond milk each) at 5pm-7pm, dinner at 8pm (8 forks of protein and 8 forks of salad/vegetables) and another Celebrate protein bar 10pm to midnight. So you do 2 protein shakes, 2 protein bars and one meal per day. Meal to include lean meat (beef, fish, pork, turkey, chicken), or citizen of [place] yogurt, or egg whites, or beans with a salad with olive oil and fruits (berries, pears, apples, kiwi). Avoid salt, breads, potatoes, rice, pasta, desserts. 3. Each shake would be drunk slowly, like coffee in a period of 2 hours. 4. Cut each bar in 4 pieces and eat each piece in 30min ?to make each bar last 2 hours. 5. I emphasized the importance of measuring accurately the food portion and measure it when serving the food in plate 6. The meal portions include 8 full-size forks of meat and 8 full-size forks of salad. You always eat the meat portion but you can replace up to 4 forks for salad/vegetables with rice, potatoes or pasta, or a fruit ?if you like. The less you do it the better weight loss will be. 7. One full-size fork is what it can be scooped on the fork without falling aside and not what can be bit with the fork. Use regular forks like those you find in a typical restaurant. 8.? Please buy the body composition scale we discussed and send me weight measurements as soon as possible and then once a week. Always include your diet and exercise plan. 9. Start walking outside daily, tracking calories with a goal of 300 calories per day, daily. Goal is to burn 2000 calories per week on exercise, which means either 300 calories daily, or 400 calories 5 days per week, or 500 calories 4 days per week, or 650 calories 3 days per week. 10. The best choice would be to purchase a stationary bike, elliptical or treadmill at home that can track calories. Let me know if you do so I can give you an exercise plan. 11.?It is important of avoiding and for at least 18 months postoperatively and has been discussed at the infosession. 12. Goal is to lose at least 1.5-2lbs per week 13. Goal to lose 10% of your weight before surgery, which is about 26lbs. Ultimate weight goal: 220lbs before surgery 14. Please follow the diet plan exactly without any change. If you don't like something about the plan or you feel hungry you need to communicate with me so I can help you revise the plan. You should not change the plan yourself 15. To be scheduled for EGD to assess the stomach's anatomy. The possibility of biopsies was discussed. Patient needs to avoid use of NSAIDs and aspirin for 1 week prior to EGD. You must be on liquids only the day before your endoscopy. Risks of perforation and bleeding was discussed with the patient. This will be an outpatient procedure with IV sedation. Orders: Orders Hemoglobin A1c Today E66.01 - Morbid (severe) obesity due to excess calories, K21.9 - Gastro-esophageal reflux disease without esophagitis Lipid Panel Today E66.01 - Morbid (severe) obesity due to excess calories, K21.9 - Gastro-esophageal reflux disease without esophagitis Comprehensive Met. Panel Today E66.01 - Morbid (severe) obesity due to excess calories, K21.9 - Gastro-esophageal reflux disease without esophagitis Vitamin B12 and Folate Today E66.01 - Morbid (severe) obesity due to excess calories, K21.9 - Gastro-esophageal reflux disease without esophagitis C Reactive Protein Today E66.01 - Morbid (severe) obesity due to excess calories, K21.9 - Gastro-esophageal reflux disease without esophagitis TSH reflex Free T4 Today E66.01 - Morbid (severe) obesity due to excess calories, K21.9 - Gastro-esophageal reflux disease without esophagitis XR chest 2V Today E66.01 - Morbid (severe) obesity due to excess calories, K21.9 - Gastro-esophageal reflux disease without esophagitis ECG 12 lead EKG Today E66.01 - Morbid (severe) obesity due to excess calories, K21.9 - Gastro-esophageal reflux disease without esophagitis Insulin Today E66.01 - Morbid (severe) obesity due to excess calories, K21.9 - Gastro-esophageal reflux disease without esophagitis H Pylori Breath Test Today E66.01 - Morbid (severe) obesity due to excess calories, K21.9 - Gastro-esophageal reflux disease without esophagitis Complete Blood Count Auto Diff Today E66.01 - Morbid (severe) obesity due to excess calories, K21.9 - Gastro-esophageal reflux disease without esophagitis IRON PROFILE Today E66.01 - Morbid (severe) obesity due to excess calories, K21.9 - Gastro-esophageal reflux disease without esophagitis Zinc Today E66.01 - Morbid (severe) obesity due to excess calories, K21.9 - Gastro-esophageal reflux disease without esophagitis Vitamin B1 Today E66.01 - Morbid (severe) obesity due to excess calories, K21.9 - Gastro-esophageal reflux disease without esophagitis Vitamin A Today E66.01 - Morbid (severe) obesity due to excess calories, K21.9 - Gastro-esophageal reflux disease without esophagitis Ferritin Today E66.01 - Morbid (severe) obesity due to excess calories, K21.9 - Gastro-esophageal reflux disease without esophagitis Vitamin D 25-OH Total Today E66.01 - Morbid (severe) obesity due to excess calories, K21.9 - Gastro-esophageal reflux disease without esophagitis US abdomen comp w elastography Today E66.01 - Morbid (severe) obesity due to excess calories, K21.9 - Gastro-esophageal reflux disease without esophagitis FL upper GI w air Today E66.01 - Morbid (severe) obesity due to excess calories, K21.9 - Gastro-esophageal reflux disease without esophagitis Referrals Behavioral Health Referral E66.01 - Morbid (severe) obesity due to excess calories, K21.9 - Gastro-esophageal reflux disease without esophagitis Nutrition/Dietitian Referral E66.01 - Morbid (severe) obesity due to excess calories, K21.9 - Gastro-esophageal reflux disease without esophagitis
[2025-03-22 11:43] VITALS: BMI 45.8
== END 2025-03-22 12:07 | disposition home or self-care (01) ==
LOC: HO.HBS 08:09
PROVIDERS: PCP Internal Medicine; Visit Provider Surgery
DX: E66.01 Morbid (severe) obesity due to excess calories (principal)
CPT/HCPCS: 99204

== ENCOUNTER → 2025-03-24 14:48 | Outpatient (REF) | payer OTHER, SELFPAY ==
--- NOTE | ~2025-03-24 | XR_ITS ---
EXAMINATION: XR CHEST CLINICAL INFORMATION: E66.01 - Morbid (severe) obesity due to excess calories COMPARISON: None available. TECHNIQUE: PA and lateral views FINDINGS: No hyperinflation. No consolidation, pleural effusion or pneumothorax. Cardiomediastinal silhouette size is normal. Mild multilevel thoracolumbar spondylosis. Patient's large body habitus/obesity. XR/XR chest 2V IMPRESSION: No acute airspace disease. Mild multilevel spondylosis. Electronically signed by: Leonardo Osman MD 03/24/2025 03:20 PM [facility]
--- NOTE | 2025-03-24 15:00 | ECG_ITS ---
Test Reason : E66.01 Blood Pressure : */* mmHG Vent. Rate : 81 BPM Atrial Rate : 81 BPM P-R Int : 162 ms QRS Dur : 84 ms QT Int : 380 ms P-R-T Axes : 37 35 -1 degrees QTcB Int : 441 ms Normal sinus rhythm Normal ECG When compared with ECG of 21-Mar-2019 07:43, No significant change was found Referred By: Suresh Byrd Electronically Signed By: Varinder Wilde
--- OUTSIDE RECORDS SUMMARY | 2025-03-24 17:56 | XMS_ITS | Encounter Summary ---
Author Organization [facility] Address [address] [place] [address] [place] [address] Phone Care Team Providers Care Psychologist Research Assistant Name Role Phone Tye Montaño MD Primary Care Provider +1- [phone] Encounter Details Date Type Department Care Team (Late st Contact Info) Description 07/14/2023 Procedure Pass [facility] L&D Procedures [address] [place] [address] Social History Tobacco Use Types Packs/Day Years [...] 07/15/2023 4:00 PM Arlen Welch RN * Jones Suicide Severity Rating Scale (Screener/Recent Self-Report) Question [...] on filedocumented in this encounter Care Teams Psychologist Research Assistant Relationship Specialty Start Date End Date Tye Montaño MD [address] [place] [address] PCP - General Internal Medicine 03/25/23 documented as of this encounter Additional Source Comments The information contained in this document represents components of the legal health record. It is not the complete legal health record.[facility]
--- OUTSIDE RECORDS SUMMARY | 2025-03-24 17:56 | XMS_ITS | Clinical Summary ---
Author Organization [facility] Address [address] [place] [address] Phone Care Team Providers Care Information Systems Audit Manager Name Role Phone Tye Montaño MD Primary Care Provider +1- [phone] Allergies Active Allergy Reactions Criticality Noted Date [...] protein shake or a protein bar or Tamazight yogurt or cottage cheese to be consumed [...] of 50 for delivery at [facility]. Assessment & Plan (02/03/2023 4:03 PM EDT): Reviewed BMI cutoff for delivery at [facility]. Recommended max weight gain of 20 pounds. [...] bleeding/Ucs. -Discussed FM at this [place] and [facility] -Review signs and symptoms of Labor and [...] transabdominal scanning. Still awaiting FOB labs from [facility]. CBC and glucola at next visit. Assessment & Plan (02/06/2023 3:51 PM EDT): Katharina has been feeling some cramping for the past couple of days. A little more intense than before. Feels well today. No cramping currently. Is anxious due to recurrent loss. Would like to hear baby's heart. Cervical length normal at [facility] on 01/31. Repeat ordered to be [...] gestation. She has been getting ultrasounds at [facility] for cervical length. She is due for repeat ultrasound this week. She notes that they have been normal thus far. She did discuss cerclage with [facility] but they are following expectantly at the present time which is reasonable. She has a follow-up ultrasound later this week which I encouraged her to keep at [facility]. We can continue to do cervical [...] Most Recently Relevant to Health Maintenance Insurance [facility] [employer] [place] ALLANCE ACO [facility] [employer] ALLANCE ACO [facility] [employer] ALLANCE ACO Advance Directives For more information, please contact: [phone] (9AM - 5PM [facility], Saturday-Saturday) Documents on File Type Date Recorded Patient Crystal Cutter Expl anation Healthcare Proxy 07/18/2023 12:30 PM * Full Code (Latest Code Status on File) Date Activated Date Inactivated Comments 07/14/2023 1:51 AM Question Answer Comments Code Status Confirmed With: Patient * Full Code Date Activated Date Inactivated Comments 07/13/2023 3:53 AM 07/14/2023 1:49 AM Question Answer Comments Code Status Confirmed With: Patient Care Teams Information Systems Audit Manager Relationship Specialty Start Date End Date Tye Montaño MD [address] [place] [address] PCP - General Internal Medicine 03/25/23 Additional Source Comments The information contained in this document represents components of the legal health record. It is not the complete legal health record.[facility]
--- OUTSIDE RECORDS SUMMARY | 2025-03-24 17:56 | XMS_ITS | Clinical Summary ---
Author Organization [employer] Address [address] [facility] [address] [place] [address] Care Team Providers Care Sql Report Writer Name Role Phone Unavailable Primary Care Provider [...]
--- OUTSIDE RECORDS SUMMARY | 2025-03-24 17:56 | XMS_ITS | Encounter Summary ---
Author Organization [facility] Address [address] [place] [address] Phone Care Team Providers Care Emergency Medcl Emt Name Role Phone Pcp, Unknown Primary Care Provider Tye Ann MD Primary Care Provider +1- [phone] Encounter Details Date Type Department Care Team (Late st Contact Info) Description 07/24/2021 Procedure Pass [place] Admitting Dept - Virtual Department [address] [place] [address] Social History Tobacco Use Types Packs/Day Years [...] on filedocumented in this encounter Care Teams Emergency Medcl Emt Relationship Specialty Start Date End Date Pcp, Unknown PCP - General 04/24/20 03/24/23 Tye Montaño MD [address] [place] [address] PCP - General Internal Medicine 03/25/23 documented as of this encounter Additional Source Comments The information contained in this document represents components of the legal health record. It is not the complete legal health record.[facility]
== END ==
LOC: HO.CARD 14:48
PROVIDERS: PCP Internal Medicine; Visit Provider Surgery
DX: E66.01 Morbid (severe) obesity due to excess calories (principal); K21.9 Gastro-esophageal reflux disease without esophagitis
CPT/HCPCS: 71046; 93005

== ENCOUNTER → 2025-03-24 15:00 | Outpatient (BNV) | payer OTHER, SELFPAY | PROVIDERS: PCP Internal Medicine; Visit Provider Internal Medicine Cardiovascular Disease | DX: E66.01 Morbid (severe) obesity due to excess calories (principal) | CPT/HCPCS: 93010 ==

== ENCOUNTER → 2025-03-24 15:07 | Outpatient (BNV) | payer OTHER, SELFPAY | PROVIDERS: PCP Internal Medicine; Visit Provider Radiology Diagnostic Radiology | DX: E66.01 Morbid (severe) obesity due to excess calories (principal); M47.814 Spondylosis without myelopathy or radiculopathy, thoracic region | CPT/HCPCS: 71046 ==

== ENCOUNTER 2025-03-25 12:50 | Outpatient (REF) | payer OTHER, SELFPAY ==
[2025-03-25 13:03] LABS: MANUAL DIFF FLAG NO
[2025-03-25 14:16] LABS: Hematocrit 45.0 % (37.0-47.0); Hemoglobin 14.5 g/dl (12.0-16.0); Imm Gran Abs Auto 0.05 X10*3/uL (0.00-0.03); Imm Gran Pct Auto 0.4 % (0.0-0.4); Lymphocytes Absolute Auto 3.3 X10*3/uL (1.2-4.9); Mean Corpuscular HGB Conc 32.2 g/dl (31.0-35.0); Mean Corpuscular Hemoglobin 27.5 pg (27.0-33.0); Mean Corpuscular Volume 85.4 fL (80.0-98.0); NRBC Abs Auto 0.000 X10*3/uL (0.0-0.012); NRBC Pct Auto 0.0 /100WBC (0.0-0.2); Platelet Count 236 X10*3/uL (160-400); Red Blood Count 5.27 X10*6/uL (4.20-5.50); White Blood Count 13.1 X10*3/uL (4.8-10.8)
[2025-03-25 14:48] LABS: Alanine Aminotransferase 15 U/L (0-31); Albumin Level 4.6 g/dL (3.5-5.0); Alkaline Phosphatase 72 U/L (39-117); Aspartate Amino Transferase 26 U/L (5-31); Blood Urea Nitrogen 13 mg/dL (9-16); Calcium 9.4 mg/dL (8.4-10.2); Carbon Dioxide 27 mmol/L (22-29); Chloride 106 mmol/L (96-108); Cholesterol 201 mg/dL (<200); Estimated Glomerular Filt Rate > 60; HDL Cholesterol 28 mg/dL (>40); Iron 50 mcg/dL (30-160); Percent Iron Saturation 14 % (15-50); Potassium 4.0 mmol/L (3.3-5.1); Sodium 139 mmol/L (135-145); Total Iron Binding Capacity 362 mcg/dL (228-428); Total Protein 8.0 g/dL (6.5-8.0); Triglycerides 204 mg/dL (<150); Unsaturated Iron Binding 312 ug/dL
[2025-03-25 14:55] LABS: Anion Gap 13 (12-20)
[2025-03-25 15:10] LABS: Ferritin 32 ng/mL (10-122)
[2025-03-25 15:22] LABS: Folate 8.9 ng/mL (> or = 4.0); Vitamin B12 476 pg/mL (200-900)
--- OUTSIDE RECORDS SUMMARY | 2025-03-25 15:47 | XMS_ITS | Clinical Summary ---
Author Organization [employer] Address [address] [facility] [address] [place] [address] Care Team Providers Care Operating Room Specialist Name Role Phone Unavailable Primary Care Provider [...] Most Recently Relevant to Health Maintenance Insurance [facility] MEDICAID STAND ADULT
--- OUTSIDE RECORDS SUMMARY | 2025-03-25 15:47 | XMS_ITS | Encounter Summary ---
Author Organization [facility] Address [address] [place] [address] [place] [address] Phone Care Team Providers Care Event Specialist Food Demonstrator Name Role Phone Tye Montaño MD Primary Care Provider +1- [phone] Encounter Details Date Type Department Care Team (Late st Contact Info) Description 07/14/2023 Procedure Pass [facility] L&D Procedures [address] [place] [address] Social History Tobacco Use Types Packs/Day Years [...] 07/15/2023 4:00 PM Arlen Welch RN * [place] Suicide Severity Rating Scale (Screener/Recent Self-Report) Question [...] on filedocumented in this encounter Care Teams Event Specialist Food Demonstrator Relationship Specialty Start Date End Date Tye Montaño MD [address] [place] [address] PCP - General Internal Medicine 03/25/23 documented as of this encounter Additional Source Comments The information contained in this document represents components of the legal health record. It is not the complete legal health record.[facility]
--- OUTSIDE RECORDS SUMMARY | 2025-03-25 15:47 | XMS_ITS | Encounter Summary ---
Author Organization [facility] Address [address] [place] [address] Phone Care Team Providers Care Activity Aid Name Role Phone Pcp, Unknown Primary Care Provider Tye Ann MD Primary Care Provider +1- [phone] Encounter Details Date Type Department Care Team (Late st Contact Info) Description 07/24/2021 Procedure Pass [place] Admitting Dept - Virtual Department [address] [place] [address] Social History Tobacco Use Types Packs/Day Years [...] on filedocumented in this encounter Care Teams Activity Aid Relationship Specialty Start Date End Date Pcp, Unknown PCP - General 04/24/20 03/24/23 Tye Montaño MD [address] [place] [address] PCP - General Internal Medicine 03/25/23 documented as of this encounter Additional Source Comments The information contained in this document represents components of the legal health record. It is not the complete legal health record.[facility]
--- OUTSIDE RECORDS SUMMARY | 2025-03-25 15:47 | XMS_ITS | Clinical Summary ---
Author Organization [facility] Address [address] [place] [id number] Phone Care Team Providers Care Cyber Security Engineer Name Role Phone Tye Montaño MD Primary Care Provider [phone] Allergies Active Allergy Reactions Criticality Noted Date [...] protein shake or a protein bar or Czech yogurt or cottage cheese to be consumed [...] Elevated BP in todays visit Denies any ANPIER, epigastric pain, Visual changes, and sudden onset [...] BMI cutoff of 50 for delivery at [facility]. Assessment & Plan (02/03/2023 4:03 PM EDT): Reviewed BMI cutoff for delivery at [facility]. Recommended max weight gain of 20 pounds. [...] Assessment & Plan (06/27/2023 11:17 PM EST): Ktaharina is a 27 y.o. at 36w2d states she feels well today. Denies any concerns at this time. Denies any LOF/Vaginal bleeding/Ucs. -Discussed FM at this [place] and [facility] -Review signs and symptoms of [...] transabdominal scanning. Still awaiting FOB labs from [facility]. CBC and glucola at next visit. Assessment & Plan (02/06/2023 3:51 PM EDT): Katharina has been feeling some cramping for the past couple of days. A little more intense than before. Feels well today. No cramping currently. Is anxious due to recurrent loss. Would like to hear baby's heart. Cervical length normal at [facility] on 01/31. Repeat ordered to [...] gestation. She has been getting ultrasounds at [facility] for cervical length. She is due for repeat ultrasound this week. She notes that they have been normal thus far. She did discuss cerclage with [facility] but they are following expectantly at the present time which is reasonable. She has a follow-up ultrasound later this week which I encouraged her to keep at [facility]. We can continue to do [...] Most Recently Relevant to Health Maintenance Insurance [facility] [employer] [facility] [facility] [employer] ALLANCE ACO [facility] [employer] ALLANCE ACO Advance Directives For more information, please contact: [phone] (9AM - 5PM [facility], Saturday-Saturday) Documents on File Type Date Recorded Patient [place] Programs Director Expl anation Healthcare Proxy 07/18/2023 12:30 PM * Full Code (Latest Code Status on File) Date Activated Date Inactivated Comments 07/14/2023 1:51 AM Question Answer Comments Code Status Confirmed With: Patient * Full Code Date Activated Date Inactivated Comments 07/13/2023 3:53 AM 07/14/2023 1:49 AM Question Answer Comments Code Status Confirmed With: Patient Care Teams Cyber Security Engineer Relationship Specialty Start Date End Date Tye Montaño MD [address] [place] [id number] PCP - General Internal Medicine 03/25/23 Additional Source Comments The information contained in this document represents components of the legal health record. It is not the complete legal health record.[facility]
== END 2025-03-25 12:51 | disposition home or self-care (01) ==
LOC: HO.LAB 12:50
PROVIDERS: PCP Student in an Organized Health Care Education/Training Program; Visit Provider Surgery
DX: E66.01 Morbid (severe) obesity due to excess calories (principal); K21.9 Gastro-esophageal reflux disease without esophagitis
CPT/HCPCS: 36415; 80053; 80061; 82306; 82607; 82728; 82746; 83036; 83525; 83540; 84425; 84443; 84590; 84630; 85025; 86140

== ENCOUNTER 2025-04-05 09:36 | Outpatient (REF) | payer OTHER, SELFPAY ==
--- NOTE | ~2025-04-05 | FL_ITS ---
EXAMINATION: XR FLUOROSCOPY UPPER GI SERIES CLINICAL INFORMATION: Obesity secondary to excess calories. Preoperative bariatric. COMPARISON: None TECHNIQUE: Fluoroscopic air contrast upper GI examination was performed utilizing standard techniques with thin and thick barium and effervescent granules. Numerous spot images were obtained. Several fluoroscopic image hold cine sequences were also obtained. FINDINGS: UPPER GI SERIES: Lateral cine images of the oropharynx and hypopharynx demonstrate normal swallow mechanism with normal epiglottic inversion and soft palate elevation. No laryngeal penetration, glottic or subglottic aspiration identified. Hypopharyngeal structures appear normal without evidence of mass or diverticulum. There was no significant cricopharyngeal achalasia. Dual and single contrast images of the esophagus demonstrate normal caliber, contour, and mucosal pattern. No evidence of stricture, mass, or ulcerations identified. Esophageal peristalsis was mildly disordered. No definite evidence of hiatus hernia identified. Mild gastroesophageal reflux was seen to the level of the porter during the examination. Dual contrast and single contrast images of the stomach demonstrated normal contour and mucosal pattern without evidence of mass, ulceration, or other abnormality. Contrast freely passed into the gastric antrum and duodenal bulb without delay. Single and air-contrast images of the duodenal bulb demonstrate no abnormality. The duodenal sweep has a normal appearance, course, and mucosal fold appearance. FLUOROSCOPY TIME: 2 minutes, 10 seconds Number of Spot Images:8 Number of cines obtained: 6 DOSE AREA PRODUCT: 3529 uGy-m2 (microgray-meter squared) FL/FL upper GI w air IMPRESSION: 1. Mildly disordered esophageal peristalsis. 2. Very mild gastroesophageal reflux present to the level of the porter. 3. The remainder of the examination is normal. Electronically signed by: Dixon Solorio MD 04/05/2025 12:10 PM [facility]
== END 2025-04-05 09:37 | disposition home or self-care (01) ==
LOC: HO.XRAY 09:36
PROVIDERS: Visit Provider Surgery
DX: E66.01 Morbid (severe) obesity due to excess calories (principal); K21.9 Gastro-esophageal reflux disease without esophagitis; F41.0 Panic disorder [episodic paroxysmal anxiety]; E55.9 Vitamin D deficiency, unspecified; E53.8 Deficiency of other specified B group vitamins; E78.5 Hyperlipidemia, unspecified; M25.572 Pain in left ankle and joints of left foot; F17.200 Nicotine dependence, unspecified, uncomplicated; Z71.6 Tobacco abuse counseling
CPT/HCPCS: 74246; 96127; 99202

== ENCOUNTER → 2025-04-05 09:37 | Outpatient (BNV) | payer OTHER, SELFPAY | PROVIDERS: Visit Provider Radiology Diagnostic Radiology | DX: K21.9 Gastro-esophageal reflux disease without esophagitis (principal) | CPT/HCPCS: 74246 ==

== ENCOUNTER 2025-04-05 13:25 | Outpatient (AMB) | payer OTHER, SELFPAY ==
--- NOTE | 2025-04-05 13:27 | A.OFFPC_ITS ---
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,overweight Intake Note: REVERSAL PRINT INSPECTOR- joint pain, knee pain, overweight Safety Investigator/Cause Analyst Required: No Accompanied by: Self / Same As Patient Allergies nickel (NICKEL) Allergy (Mild, Verified 04/05/25 13:31) ITCHY RASH Tobacco use date assessed: 04/05/25 Dental Screening Dental Screen Date: 04/05/25 Did you have a dental visit in the last 12 months?: No Did you have a dental problem in the last 6 months where you did not have access to dental care?: Yes Was dental information given to patient?: Yes HPI HPI Comments History of Present Illness Details History of Present Illness The patient is a 29-year-old female presenting to [facility], for a bariatric surgery referral, and for evaluation of chronic ankle pain. Morbid obesity: The patient is requesting a referral to Dr. Garcia for bariatric surgery. She is currently following a strict diet in preparation. She has had recent pre- operative blood work done at [facility]. Panic attacks: The patient reports experiencing random panic attacks, which she finds difficult to manage without medication. Her previous primary care physician prescribed Xanax 0.25 mg, which she takes as needed, approximately once a month. She has not previously seen a therapist for this condition. She states she has only taken half of one tablet in the last two months. Chronic left ankle pain: The patient has had left ankle pain for approximately five years, originating f rom an injury where she stepped awkwardly in a puddle while walking in the dark. She never had the ankle medically evaluated at the time of injury. Recently, she experienced a sensation that felt like the ankle shattered or cracked, which was accompanied by a feeling of warmth. The pain limits her ability to walk for extended periods and has been a barrier to exercise. She reports some associated swelling in the ankle. Leukocytosis: The patient reports a history of an elevated white blood cell count, which was noted about two years ago and again in recent blood work. Vitamin D deficiency: Recent lab work revealed a low vitamin D level, and she is currently taking supplements for it. Hyperlipidemia: Recent lab results show slightly elevated cholesterol, triglycerides, and LDL cholesterol. Suspicious skin lesion: The patient is concerned about a birthmark on her chest that has changed, noting it has an irregular shape. She also noted a second lesion that she had not noticed before. She has no family history of skin cancer. Medications: - Xanax 0.25 mg as needed for panic mimi cks. - Vitamin D supplement for vitamin D def iciency. - Vitamin B12 supplement. Social History: - Alcohol Use: Reports rare alcohol cons umption, about once a month. - Past Substance Use: States she used to drink more before having her baby. - Nutrition: Currently on a strict diet in preparation for bariatric surgery. - Exercise: Activity is limited due to c hronic ankle pain. Family History: - Reports no family history of skin canc er. Diagnostic Results: - Recent bloodwork from last week at [facility] reviewed with the following findings: - CBC: White blood cell count was noted to be high. - CMP: Performed. - Hemoglobin A1c: Normal. - Insulin: Normal. - Vitamin D: Low. - Vitamin B12: Normal. - Thyroid studies: Normal. - Folate: Normal. - Lipid Panel: Cholesterol, triglyceride s, and LDL are slightly high. - PHQ and ELAINA screening: Results are goo d. Past Medical History - Anxiety with panic attacks. - Ankle injury approximately 5 years ago , never medically evaluated. - History of . - Leukocytosis, noted on labs two years ago and recently. - Vitamin D deficiency. - Hyperlipidemia. Health Maintenance - Seeking bariatric surgery for weight m anagement. - Cervical Cancer Screening: Patient is unsure of the date of her last Pap smear; advised to follow up with [facility] for screening every 3-5 years. - Skin Cancer Screening: Referred to [facility] for evaluation of a suspicious, changing lesion on her chest. - Nutrition: Patient is on a strict diet . - Vitamin supplementation: Taking vitami n D for deficiency and vitamin B12. [facility] Medical History (Updated 04/05/25 @ 14:03 by Castillo William MD) Hyperlipidemia Left ankle pain Vitamin B12 deficiency Vitamin D deficiency Morbid obesity Panic attacks Obesity History of multiple miscarriages No known health problems Surgical History History of delivery Family History Father Heart attack Prediabetes Mother IBS (irritable bowel syndrome) Social History (Updated 04/05/25 @ 13:32 by Fahad Shaikh CMA) Housing: Apartment Alcohol intake: current Alcohol intake frequency: holidays/special occasions only Patient Tobacco Use Status: Current everyday Tobacco user Cigarettes Per Day: 10 e-Cigarette/Vaping Use: Never Used Use of substances other than those prescribed or required for medical reasons: No service: No Current occupational status: unemployed Cognitive needs: No Hearing needs: No Vision needs: No Questionnaire PHQ-9 Over the last 2 weeks, how often have you been bothered by any of the following problems? 1. Little interest or pleasure in doing things: not at all 2. Feeling down, depressed, or hopeless: not at all 3. Trouble falling or staying asleep, or sleeping too much: several days 4. Feeling tired or having little energy: several days 5. Poor appetite or overeating: not at all 6. Feeling bad about yourself - or that you are a failure or have let yourself or your family down: not at all 7. Trouble concentrating on things, such as reading the newspaper or watching television: not at all 8. Moving or speaking so slowly that other people could have noticed. Or the opposite - being so fidgety or restless that you have been moving around a lot more than usual: not at all 9. Thoughts that you would be better off or of hurting yourself in some way: not at all Total score: 2 Depression Screening Interpretation: Negative Depression Screening Done: Yes 55432 - PHQ-9 Billing: Yes Source: Developed by Drs. Cj Ruiz, Leslie Molina, Curly Mi and colleagues, with an educational joann from [employer]. Thrive Questionnaire Date Thrive assessed: 03/30/25 I am a: Patient What is your living situation today?: I have a steady place to live Within the past 12 months, did the food you bought not last and you didn't have the money to get more?: Never true Within the past 12 months, did you worry whether your food would run out before you got money to buy more?: Sometimes True Do you have trouble paying for medicines?: No Do you have trouble getting transportation to medical appointments?: No Do you have trouble paying your heating and electricity bill?: Yes Do you have trouble taking care of your child, family member or friend?: No Do you have trouble with day-to-day activities such as bathing, preparing meals, shopping, managing finances, etc.?: No Are you currently unemployed and looking for a job?: Yes Are you interested in more education?: I choose not to answer this question Please select the resources that you would like help with: Utilities, Childcare and Job search/training Currently or been in a relationship where the following occur: No concerns reported THRIVE Score: 2 AUDIT C Alcohol Use Questionnaire (AUDIT-C) 1. How often do you have a drink containing alcohol?: Monthly or less 2. How many drinks containing alcohol do you have on a typical day when you are drinking?: 5 or 6 3. How often do you have six or more drinks on one occasion?: Less than monthly Total Score: 4 ELAINA-7 AMB Questionnaire ELAINA-7 Date ELAINA - 7 assessed: 04/05/25 Feeling nervous, anxious, or on edge: 1 = Several days Not being able to stop or control worryin = Not at all Worrying too much about different things: 1 = Several days Trouble relaxin = Not at all Being so restless that it is hard to sit still: 0 = Not at all Becoming easily annoyed or irritable: 0 = Not at all Feeling afraid as if something awful might happen: 0 = Not at all Total ELAINA-7 score (0-4 normal; 5-9 mild; 10-14 moderate; 15-21 severe): 2 Source: Developed by Drs. Cj Ruiz, Leslie Molina, Curly Mi and colleagues, with an educational joann from [employer]. ELAINA-7 Assessment Billing ELAINA-7 Assessment Tool: ELAINA-7 Assessment 33418 Review of Systems Narrative Review of Systems - Musculoskeletal: Reports chronic left ankle pain that limits walking and associated ankle swelling. - Psychiatric: Reports history of random panic attacks. - Integumentary: Reports a birthmark on her chest has changed and has an irregular shape, and notes another new lesion. - Genitourinary: Unsure of date of last Pap smear. 10-point ROS reviewed and negative except as noted in HPI Physical exam (Primary Care) Vital Signs: Last Vital Signs Temp 98.1 F 04/05/25 13:32 Pulse 90 04/05/25 13:32 Resp 20 04/05/25 13:32 BP 113/65 04/05/25 13:32 Pulse Ox 96 04/05/25 13:32 Oxygen Delivery Method Room Air 04/05/25 13:32 BMI result Body Mass Index 44.2 Tobacco/Smoking Status: Tobacco use Status Tobacco use date assessed 04/05/25 04/05/25 13:35 Patient Tobacco Use Status Current everyday Tobacco 04/05/25 13:32 e-Cigarette/Vaping Use Never Used 04/05/25 13:35 PHQ-9: PHQ-9 Score PHQ-9: Total score 2 04/05/25 13:29 Depression Screening Interpretation: Negative Thrive Assessment: Date of Thrive Assessment Date Thrive assessed 03/30/25 04/05/25 13:29 Currently or been in a relationship where the following occur: No concerns reported Narrative Physical Exam General: Well-appearing, in no acute distress. Vital signs: Within normal limits. HEENT: Normocephalic, atraumatic. PERRLA, EOMI. Conjunctiva clear, sclera anicteric. Oropharynx clear, mucous membranes moist. TMs intact bilaterally. Neck: Supple, no lymphadenopathy, no thyromegaly, no JVD or carotid bruits. Cardiovascular: RRR, normal S1/S2, no murmurs, rubs, or gallops. Peripheral pulses 2+ and symmetric. No edema. Respiratory: Lungs clear to auscultation bilaterally, no wheezes, rales, or rhonchi. Normal effort. Abdomen: Soft, non-tender, non-distended. Normoactive bowel sounds. No hepatosplenomegaly, no masses. MSK: Full range of motion, no joint swelling or deformity. Normal gait. Left ankle pain noted due to previous injury, referral to physical therapy for strengthening. Skin: Warm, dry, intact. No rashes, lesions, or pallor. Noted irregularly shaped birthmark on chest, referral to dermatology for evaluation. Neuro: Alert and oriented x3. Cranial nerves II-XII intact. Strength 5/5 throughout. Sensation intact. Reflexes 2+ symmetric. Normal coordination and gait. Psych: Appropriate mood and affect. Normal judgment and insight. Discussed comprehensive approach to anxiety management, referral to behavioral health. Coding Level of Care Code New Pt Level 4 (05192) Diagnoses Morbid obesity E66.01 Panic attacks F41.0 Vitamin D deficiency E55.9 Vitamin B12 deficiency E53.8 Left ankle pain M25.572 Hyperlipidemia E78.5 Additional Codes ELAINA-7 Assessment Billing - ELAINA-7 Assessment Tool: ELAINA-7 Assessment 26961 ([id number]) PHQ-9 - 72012 - PHQ-9 Billing: Yes ([id number]) Assessment & Plan Assessment & Plan (1) Morbid obesity: Code(s): E66.01 - Morbid (severe) obesity due to excess calories Category: Medical (2) Panic attacks: Code(s): F41.0 - Panic disorder [episodic paroxysmal anxiety] Category: Medical (3) Vitamin D deficiency: Code(s): E55.9 - Vitamin D deficiency, unspecified Category: Medical (4) Vitamin B12 deficiency: Code(s): E53.8 - Deficiency of other specified B group vitamins Category: Medical (5) Left ankle pain: Code(s): M25.572 - Pain in left ankle and joints of left foot Category: Medical (6) Hyperlipidemia: Code(s): E78.5 - Hyperlipidemia, unspecified Category: Medical Plan Consent Patient was informed and verbally consented to the use of an ambient scribe for clinic note documentation during this visit. Plan 1. Morbid Obesity - A referral will be placed to Bariatric Surgery for evaluation, as requested. - The patient will continue with her current strict diet. 2. Panic Attacks - A discussion was held regarding a comprehensive approach to anxiety, emphasizing therapy over medication alone. - The patient was informed that the Xanax prescription will not be refilled due to its addictive potential. - A referral to Behavioral Health, previously placed by another provider, was noted and encouraged. 3. Chronic Left Ankle Pain - A referral will be placed for Physical Therapy to help strengthen the ankle and manage pain, which is impeding her ability to exercise. 4. Suspicious Skin Lesion - A referral will be placed to Dermatology for evaluation of a changing birthmark on the chest. 5. Health Maintenance: Labs And Screenings - Recently completed labs from the prior week were reviewed, and no new labs will be ordered at this time. - The patient was advised to follow up with her AUTO RESEARCH ENGINEER for a Pap smear, and a referral will be provided if necessary. Discussion Notes I discussed my treatment philosophy with the patient, particularly regarding her use of Xanax for panic attacks. I explained that I would not be prescribing benzodiazepines due to their addictive nature and that a comprehensive approach involving therapy is the recommended course of treatment for anxiety. I reviewed her recent labs, noting that her vitamin D was low, for which she is already taking supplements, and her cholesterol was slightly high, which is expected to improve with diet and weight loss. I confirmed I would place the requested referral to bariatric surgery, as well as referrals to dermatology for her suspicious skin lesion and to physical therapy for her chronic ankle pain. We also discussed the need for a follow-up with her AUTO RESEARCH ENGINEER for a Pap smear. I explained that the referral center would contact her to schedule these appointments. Patient Instructions - I have placed a referral for you to see a bariatric accounts receivable specialist. - I have also placed referrals to a supervisory historian for your changing birthmark and to physical therapy for your ankle pain. - The referral center will call you to schedule these appointments. - Alternatively, you can call your insurance company for a list of approved dermatologists and let our office know where to send the referral. - Please schedule an appointment with your AUTO RESEARCH ENGINEER for a Pap smear. - I will not be refilling your Xanax prescription; it is recommended you work with a behavioral health specialist to manage your panic attacks. - Continue taking your vitamin D and vitamin B12 supplements as you have been. - You do not need any new blood tests at this time, as we have reviewed your recent results. Medical Decision Making The patient is a 29-year-old female establishing care and presenting with multiple concerns. Her primary request is for a bariatric surgery referral, which is appropriate given her goals, and the referral was placed. Regarding her anxiety with panic attacks, she uses Xanax PRN. I advised against long-term benzodiazepine use due to the high risk of dependence and informed her that a comprehensive approach involving psychotherapy is the standard of care, which I will support through referrals but not with prescriptions for this medication class. Her chronic left ankle pain, stemming from an old, untreated injury, is a barrier to exercise. A referral to physical therapy is the initial step to improve strength and function before considering imaging. A changing skin lesion on her chest warrants further investigation to rule out malignancy, so a dermatology referral was placed. Recent, comprehensive lab results were available and reviewed, revealing low vitamin D (which she is supplementing) and mild hyperlipidemia, which will be addressed by diet and weight loss, obviating the need for new bloodwork. The patient was also counseled on the need for routine cervical cancer screening via a Pap smear with her AUTO RESEARCH ENGINEER. Total Time Statement 30min Total time spent caring for the patient today includes pre-visit chart review, documentation, review of laboratory and diagnostic imaging results, medication reconciliation, medically necessary evaluation, counseling on diagnoses, care coordination, ordering appropriate tests and medications, review of tests performed by other providers, reporting test results to the patient, and communication with other healthcare providers. Orders: Orders PT Evaluation and Treatment Today M25.572 - Pain in left ankle and joints of left foot Referrals Bariatric Surgery Referral E66.01 - Morbid (severe) obesity due to excess calories Dermatology Referral D22.9 - Melanocytic nevi, unspecified
[2025-04-05 13:32] VITALS: BP 113/65; PULSE 90; RESP 20; TEMP 36.7; O2SAT 96; BMI 44.2
== END 2025-04-05 13:56 | disposition home or self-care (01) ==
LOC: HO.HMCFMS 13:25
PROVIDERS: PCP Student in an Organized Health Care Education/Training Program; Visit Provider Student in an Organized Health Care Education/Training Program
DX: E66.01 Morbid (severe) obesity due to excess calories (principal); F41.0 Panic disorder [episodic paroxysmal anxiety]; E55.9 Vitamin D deficiency, unspecified; E53.8 Deficiency of other specified B group vitamins; M25.572 Pain in left ankle and joints of left foot; E78.5 Hyperlipidemia, unspecified

== ENCOUNTER 2025-04-08 10:11 | Outpatient (AMB) | payer OTHER, SELFPAY ==
--- NOTE | 2025-04-08 10:12 | A.OFFWM_ITS ---
Intake Intake Visit Reasons: TV BH Intake Allergies nickel (NICKEL) Allergy (Mild, Verified 04/05/25 13:31) ITCHY RASH PFSH Medical History (Updated 04/05/25 @ 14:03 by Castillo William MD) Hyperlipidemia Left ankle pain Vitamin B12 deficiency Vitamin D deficiency Morbid obesity Panic attacks Obesity History of multiple miscarriages No known health problems Surgical History History of delivery Family History Father Heart attack Prediabetes Mother IBS (irritable bowel syndrome) Social History (Updated 04/05/25 @ 13:32 by Fahad Shaikh CMA) Housing: Apartment Alcohol intake: current Alcohol intake frequency: holidays/special occasions only Patient Tobacco Use Status: Current everyday Tobacco user Cigarettes Per Day: 10 e-Cigarette/Vaping Use: Never Used service: No Current occupational status: unemployed Cognitive needs: No Hearing needs: No Vision needs: No Behavioral Health Assessment Weight Management Therapy Therapy Notes Details The patient is a 29-year-old female presenting to complete a behavioral health assessment as part of the surgical weight loss program. She reports having been interested in weight-loss surgery for several years and was referred to Dr. Gay by two individuals who had successful procedures with him. The patient states she has been adhering well to the recommended meal plan and is experiencing positive progress. Presenting Concerns Referral Source WMP- Provider Reason for referral Completion of behavioral health assessment as part of process for weight-loss surgery. Precipitating Event Obesity Living Situation Current Living Situation Rent At risk of losing current housing? No Satisfied with current living situation? Yes Comments PT lives with mariely and 3 kids. Food/Weight/Diet Expectations of change PT started the program at 246Lbs, and recent weight from 04/07/2025 was 240Lbs. The Initial goal is to lose 10% of her weight before s urgery, which is about 26lbs. Ultimate weight goal: 220lbs before surgery. Patient wants to reach 140Lbs post-op. PT is implementing the following: Current meal plan: 2 protein shakes, 2 protein bars and one meal per day. Exercise plan: Scale: yes. Communication w/ provider: yes, send weights on Fridays. History/Relationship with food The patient reports a history of frequent snacking, skipping meals, and experiencing intense hunger, often leading to additional eating after dinner. She notes a tendency to eat out of boredom, particularly while watching TV, and enjoys dining out with her , with many social activities centered around food. She denies stress or emotional eating, stating that her appetite typically decreases when stressed. Currently, she is working on increasing her awareness and being more intentional with her eating behaviors. History/Relationship with weight For most of her adult life, the patient maintained a weight of approximately 150 lbs. Following seven miscarriages, she experienced weight gain both during pregnancies and as a result of emotional eat ing related to these losses. Over the past 10 years, her weight has ranged from a low of 150 lbs to a high of 256 lbs. History/Relationship with dieting The patient reports a history of using GLP-1 medication for two months, during which she lost 20 lbs; however, she regained the weight following a subsequent . She has also attempted weight management through regular gym attendance and various self-directed diets. Social History Family history and relationship PT is engaged, they have a 2 year old son together. Partner has 2 daughters, they are 15 and 9 from whom he has full custody. Parents are alive, they when she was a baby. Her mom re-. She has 2 older siblings on her dad's side and 2 younger on mom's side, she is the only one from both. PT is very close to her father and siblings. 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 Developmental history and status WNL. Social support Fianc?, father, sisters, grandparents. some close girlfriends. Community support None Anabaptist/Spirituality None Cultural/Ethnic information . Legal Involvement and History Current or historical involvement with the legal system? None reported. Education Highest grade completed HS. Preferred learning style Learn by doing and Visual Currently enrolled in educational program? No Interested in further educational program? No Educational Interests/Skills Art and Tattooing. Would like to do an apprenticeship for tattooing. 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 ) Wants help to find employment? No Meaningful activities Art, drawing, hands-on things, social activities. Financial Situation Describe current financial situation Comfortable and Occasional struggle Financial assistance? Food [place] and [employer] Service Service? No Mental Health and Addiction Treatment Current/Past substance abuse? No Comments Alcohol: social, 1x month, 5-6 drinks. Cigarettes/Tobacco: 8-10 at day - Working on smoke cessation. Cannabis/Edibles: none. Current/Past addictive behavior concerns? No Psychiatric history The patient has a history of panic attacks and is prescribed alprazolam (Xanax) 0.25 mg to take as needed, which she has used only a handful of times. These episodes began approximately six years ago and are characterized by palpitations, difficulty swallowing, feeling overheated, nausea, and a sense of losing control. She reports that the frequency, intensity, and duration of these episodes have decreased over time. Her most recent anxiety attack occurred about one month ago, but she has been able to manage symptoms effectively. The patient denies any history of formal mental health treatment, psychiatric crises, or inpatient admissions. There is no history or current concern for suicidal ideation, suicide attempts, self-harm, or harm to others. Medical and Physical Health Summary Additional Medical History not covered in history None aditional Sexual History concerns None reported Physical exam in the last year? Yes Pain Screening Current pain? No Pain in the last few months? Yes Comments Ankle as she had an injury recently. Medications Is the patient compliant with medications? Yes Does the patient have Amanda Guardian in place? Not applicable Does the patient use complimentary health approaches? No Trauma/Abuse History History of trauma? No (SCOTT: 2) Questionnaires PHQ-9 Over the last 2 weeks, how often have you been bothered by any of the following problems? 1. Little interest or pleasure in doing things: not at all 2. Feeling down, depressed, or hopeless: not at all 3. Trouble falling or staying asleep, or sleeping too much: not at all 4. Feeling tired or having little energy: several days 5. Poor appetite or overeating: not at all 6. Feeling bad about yourself - or that you are a failure or have let yourself or your family down: not at all 7. Trouble concentrating on things, such as reading the newspaper or watching television: not at all 8. Moving or speaking so slowly that other people could have noticed. Or the opposite - being so fidgety or restless that you have been moving around a lot more than usual: not at all 9. Thoughts that you would be better off or of hurting yourself in some way: not at all Total score: 1 Depression Screening Interpretation: Negative (Initial score from new PT pack: 8) Depression Screening Done: Yes 39889 - PHQ-9 Billing: Yes Source: Developed by Drs. Cj Ruiz, Leslie Molina, Curly Mi and colleagues, with an educational joann from [employer]. Binge Eating Scale Group 1 A. I don't feel self-conscious about my wt. or body size when I'm with others. B. I feel concerned about how I look to others, but it normally does not make me fell disappointed with myself C. I do get self-conscious about my appearance and wt. which makes me feel disappointed in myself. D. I feel very self-conscious about my wt. and frequently I feel intense shame and disgust for myself. I try to avoid social contacts because of my self- consciousness. Response Group 1: B Group 2 A. I don't have any difficulty eating slowly in the proper manner. B. Although I seem to gobble down foods, I don't end up feeling stuffed because of eating to much. C. At times, I tend to eat quickly and then, I feel uncomfortably full afterwards. D. I have the habit of bolting down my food, without really chewing it. When this happens I usually feel uncomfortably stuffed because I've eaten to much. Response Group 2: B Group 3 A. I feel capable to control my eating urges when I want to. B. I feel like I have failed to control my eating more than the average person. C. I feel utterly helpless when it comes to feeling in control of my eating urges. D. Because I feel so helpless about controlling my eating I have become very desperate about trying to get control. Response Group 3: B Group 4 A. I don't have the habit of eating when I'm bored. B. I sometimes eat when I'm bored, but often I'm able to get busy and get my mind off food. C. I have a regular habit of eating when I'm bored, but occasionally, I can use some other activity to get my mind off eating. D. I have a strong habit of eating when I'm bored. Nothing seems to help me breath the habit. Response Group 4: C Group 5 A. I'm usually physically hungry when I eat something. B. Occasionally, I eat something on impulse even though I really am not hungry. C. I have the regular habit of eating foods, that I might not really enjoy, to satisfy a hungry feeling even though physically, I don't need the food. D. Although I'm not physically hungry, I get a hungry feeling in my mouth that only seems to be satisfied when I eat a food, like sandwich, that fills my mouth. Sometimes, when I eat the food to satisfy my mouth hunger, I then spit the food out so I won't gain weight. Response Group 5: B Group 6 A. I don't feel any guilt or self-hate after I overeat. B. After I overeat, occasionally I feel guilt or self-hate. C. Almost all the time I experience strong guilt or self-hate after I overeat. Response Group 6: B Group 7 A. I don't lose total control of my eating when dieting even after periods when I overeat. B. Sometimes when I eat a forbidden food on a diet, I feel like I blew it and eat even more. C. Frequently, I have the habit of saying to myself, I've blown it now, why not go all the way, when I overeat on a diet. When that happens I eat more. D. I have a regular habit of starting a strict diets for myself but I break the diets by going on an eating binge. My life seems to be either a feast or famine. Response Group 7: B Group 8 A. I rarely eat so much food that I feel uncomfortably stuffed afterwards. B. Usually about once a month, I each such a quantity of food, I end up feeling very stuffed. C. I have regular periods during the month when I eat large amounts of food, either at mealtime or at snacks. D. I eat so much food that I regularly feel quite uncomfortable after eating and sometimes a bit nauseous. Response Group 8: B Group 9 A. My level of calorie intake does not go up very high or go down very low on a regular basis. B. Sometimes after I overeat, I will try to reduce my caloric intake to almost nothing to compensate for the excess calories I've eaten. C. I have a regular habit of overeating during the night. It seems that my routine is not to be hungry in the morning but overeat in the evening. D. In my adult years, I have had week-long periods where I practically starve myself. This follows periods when I overeat. It seems I live a life of either feast or famine. Response Group 9: B Group 10 A. I usually am able to stop eating when I want to. I know when enough is enough. B. Every so often, I experience a compulsion to eat which I can't seem to control. C. Frequently, I experience strong urges to eat which I seem unable to control, but at other times I can control my eating urges. D. I feel incapable of controlling urges to eat. I have a fear of not being able to stop eating voluntarily. Response Group 10: A Group 11 A. I don't have any problem stopping eating when I feel full. B. I usually can stop eating when I feel full but occasionally overeat leaving me feeling uncomfortably stuffed. C. I have a problem stopping eating once I start and usually I feel uncomfortably stuffed after I eat a meal. D. Because I have a problem not being able to stop eating when I want, I sometimes have to induce vomiting to relieve my stuffed feeling. Response Group 11: B Group 12 A. I seem to eat just as much when I'm with others, Family social gatherings as when I'm by myself. B. Sometimes, when I'm with other persons, I don't eat as much as I want to eat because I'm self-conscious about my eating. C. Frequently, I eat only a small amount of food when others are present, because I'm very embarrassed about my eating. D. I feel so ashamed about overeating that I pick times to overeat when I know no one will see me. I feel like a closet eater. Response Group 12: B Group 13 A. I eat three meals a day with only an occasional between meal snack. B. I eat 3 meals a day, but I also normally snack between meals. C. When I am snacking heavily, I get in the habit of skipping regular meals. D. There are regular periods when I seem to be continually eating, with no planned meals. Response Group 13: A (2 meals only.) Group 14 A. I don't think much about trying to control unwanted eating urges. B. At least some of the time, I feel my thoughts are pre-occupied with trying to control my eating urges. C. I feel that frequently I spend much time thinking about how much I ate or about trying not to eat anymore. D. It seems to me that most of my waking hours are pre-occupied by thoughts about eating or not eating. I feel like I'm constantly struggling not to eat. Response Group 14: B Group 15 A. I don't think about food a great deal. B. I have strong craving for food but they last only for brief periods of time. C. I have days when I can't seem to think about anything else but food. D. Most of my days seem to be pre-occupied with thoughts about food. I feel like I live to eat. Response Group 15: B Group 16 A. I usually know whether or not I'm physically hungry. I take the right portion of food to satisfy me. B. Occasionally, I feel uncertain about knowing whether or not I'm physically hungry. A these times it's hard to know how much food I should take to satisfy me. C. Even though I might know how many calories I should eat, I don't have any idea what is a normal amount of food for me. Response Group 16: B Binge Eating Score: 15 Score less than 17 Minimal Risk Score between 18-26 Moderate Risk Score between 27-46 High Risk Assessment & Plan Assessment & Plan (1) Panic disorder without agoraphobia: Code(s): F41.0 - Panic disorder [episodic paroxysmal anxiety] (2) Pre-bariatric surgery psychological evaluation: Code(s): Z71.89 - Other specified counseling Plan The patient has been cleared from a behavioral health standpoint and may proceed with submission for insurance approval when ready. She will be seen again in 6?8 weeks for additional preoperative support. A follow-up behavioral health visit will also be scheduled 1?4 weeks postoperatively to assess psychological adjustment and monitor for any concerns. * Next appointment:?06/02/2025 at 12:00 PM, telehealth. Telehealth Telehealth Telehealth Platform: [facility] Location of provider rendering services: practice address Location of patient: address on file Patient Identification confirmed using: Name, : Yes Telehealth method: video Patient verbally consented to treatment: Yes Patient verbally consented to billing insurance company: Yes Patient informed of any privacy concerns related to visit: Yes Minutes spent on Phone/Video with Pt.: 60 [place] [address] Tele Psy Diag Eval Patient Type New Diagnoses Panic disorder without agoraphobia F41.0 Pre-bariatric surgery psychological evaluation Z71.89 Additional Codes PHQ-9 - 63515 - PHQ-9 Billing: Yes ([id number]) Time Spent (min) 60
--- OUTSIDE RECORDS SUMMARY | 2025-04-08 14:59 | XMS_ITS | Clinical Summary ---
Author Organization [employer] Address [address] [place] [address] Care Team Providers Care Brattice Builder Name Role Phone Unavailable Primary Care Provider [...] 08/09/2023 HPV/Cotest 08/09/2023 COVID-19 Vaccine (1 - 2024-2 6 season) 2025 Influenza Vaccine (#1) 2025 Tobacco [...] Most Recently Relevant to Health Maintenance Insurance [facility] MEDICAID STAND ADULT
--- OUTSIDE RECORDS SUMMARY | 2025-04-08 14:59 | XMS_ITS | Encounter Summary ---
Author Organization [facility] Address [address] [place] [phone] Phone Care Team Providers Care Dock Supervisor Name Role Phone Pcp, Unknown Primary Care Provider Tye Ann MD Primary Care Provider [phone]- [phone] Encounter Details Date Type Department Care Team (Late st Contact Info) Description 07/24/2021 Procedure Pass OR Admitting Dept - Virtual Department [address] [place] [address] Social History Tobacco Use Types Packs/Day Years Used Date Smoking Tobacco: Every Day Cigarettes 0.5 12.9 Started: 2012 Smokeless Tobacco: Never Comments:5 a [...] on filedocumented in this encounter Care Teams Dock Supervisor Relationship Specialty Start Date End Date Pcp, Unknown PCP - General 04/24/20 03/24/23 Tye Montaño MD [address] [place] [id number] PCP - General Internal Medicine 03/25/23 documented as of this encounter Additional Source Comments The information contained in this document represents components of the legal health record. It is not the complete legal health record.[facility]
--- OUTSIDE RECORDS SUMMARY | 2025-04-08 14:59 | XMS_ITS | Encounter Summary ---
Author Organization [facility] Address [address] [place] [address] [place] [phone] Phone Care Team Providers Care Digital Color Press Operator Name Role Phone Tye Montaño MD Primary Care Provider +1- [phone] Encounter Details Date Type Department Care Team (Late st Contact Info) Description 07/14/2023 Procedure Pass [facility] L[facility]D Procedures [address] [place] [address] Social History Tobacco Use Types Packs/Day Years [...] 07/15/2023 4:00 PM Arlen Welch RN * [place] Suicide Severity Rating Scale (Screener/Recent Self-Report) Question [...] on filedocumented in this encounter Care Teams Digital Color Press Operator Relationship Specialty Start Date End Date Tye Montaño MD [address] [place] [address] PCP - General Internal Medicine 03/25/23 documented as of this encounter Additional Source Comments The information contained in this document represents components of the legal health record. It is not the complete legal health record.[facility]
--- OUTSIDE RECORDS SUMMARY | 2025-04-08 14:59 | XMS_ITS | Clinical Summary ---
Author Organization [facility] Address [address] [place] [phone] Phone Care Team Providers Care Meat Loiner Name Role Phone Tye Montaño MD Primary Care Provider +1- [phone] Allergies Active Allergy Reactions Criticality Noted Date [...] protein shake or a protein bar or Italian yogurt or cottage cheese to be consumed [...] BMI cutoff of 50 for delivery at [facility]. Assessment & Plan (02/03/2023 4:03 PM EDT): Reviewed BMI cutoff for delivery at [facility]. Recommended max weight gain of [...] bleeding/Ucs. -Discussed FM at this [place] and [facility] -Review signs and symptoms of Labor [...] transabdominal scanning. Still awaiting FOB labs from [facility]. CBC and glucola at next visit. Assessment & Plan (02/06/2023 3:51 PM EDT): Katharina has been feeling some cramping for the past couple of days. A little more intense than before. Feels well today. No cramping currently. Is anxious due to recurrent loss. Would like to hear baby's heart. Cervical length normal at [facility] on 01/31. Repeat ordered to be [...] gestation. She has been getting ultrasounds at [facility] for cervical length. She is due for repeat ultrasound this week. She notes that they have been normal thus far. She did discuss cerclage with [facility] but they are following expectantly at the present time which is reasonable. She has a follow-up ultrasound later this week which I encouraged her to keep at [facility]. We can continue to do cervical [...] quant results to determine timing of ultrasound. Encounters Date Type Department Care Team Description 03/29/2025 Telephone [facility] [place] [address] [place] [address] Zahra Delgadillo, RN Body Laceration from Last 3 Months Immunizations Immunization Administration Dates Next Due RSV [...] 0.5 12.9 Started: 2012 Smokeless Tobacco: Never Tobacco Cessation:Ready [...] , 10/06/2020 HEPATITIS C SCREENING Completed 01/16/2023 , 01/16/2023 HIV ONE-TIME SCREENING (18-6 5 YEARS) [...] Most Recently Relevant to Health Maintenance Insurance [facility] blur Group ACO [facility] [employer] ACO [facility] ALLANCE [facility] ALLANCE ACO [employer] ACO Advance Directives For more information, please contact: [phone] (9AM - 5PM [facility], Saturday-Saturday) Documents on File Type Date Recorded Patient Blood Bank Booking Clerk Expl anation Healthcare Proxy 07/18/2023 12:30 PM * Full Code (Latest Code Status on File) Date Activated Date Inactivated Comments 07/14/2023 1:51 AM Question Answer Comments Code Status Confirmed With: Patient * Full Code Date Activated Date Inactivated Comments 07/13/2023 3:53 AM 07/14/2023 1:49 AM Question Answer Comments Code Status Confirmed With: Patient Care Teams Meat Loiner Relationship Specialty Start Date End Date Tye Montaño MD [address] [place] [id number] PCP - General Internal Medicine 03/25/23 Additional Source Comments The information contained in this document represents components of the legal health record. It is not the complete legal health record.[facility]
== END 2025-04-08 11:06 | disposition home or self-care (01) ==
LOC: HO.HBST 10:11
PROVIDERS: PCP Student in an Organized Health Care Education/Training Program; Visit Provider Counselor Mental Health
DX: F41.0 Panic disorder [episodic paroxysmal anxiety] (principal); Z71.89 Other specified counseling
CPT/HCPCS: 90791

== ENCOUNTER 2025-04-27 10:04 | Day surgery (SDC) | payer OTHER, SELFPAY ==
[2025-04-27 05:59] VITALS: BMI 45.5
[2025-04-27 10:19] VITALS: BP 126/64; PULSE 89; RESP 18; TEMP 36.9; O2SAT 97; BMI 42.9
[2025-04-27 10:35] LABS: UPreg QC Valid YES
[2025-04-27] MEDS: Lactated Ringers 1,000 ML 100 ML IVCONT (10:38)
--- NOTE | 2025-04-27 11:51 | HO.ANESPROP2 ---
Documented by User: Yessica Hansen NP 04/23/25 08:58 HPI - Anesthesia Eval Consult details Narrative: 29yo F for Upper Endoscopy BMI 45.8 PMFSH Active Problems Active Problems: All Active Problems Hyperlipidemia (Acute) Left ankle pain (Acute) Vitamin B12 deficiency (Acute) Vitamin D deficiency (Acute) Morbid obesity (Acute) Panic attacks (Acute) Obesity (Acute) History of multiple miscarriages (Acute) Past Medical History Medical History (Updated 04/05/25 @ 14:03 by Castillo William MD) Hyperlipidemia Left ankle pain Vitamin B12 deficiency Vitamin D deficiency Morbid obesity Panic attacks Obesity History of multiple miscarriages No known health problems Family History Family History Father Heart attack Prediabetes Mother IBS (irritable bowel syndrome) Surgical History Surgical History History of delivery Social History Social History (Updated 04/05/25 @ 13:32 by Fahad Shaikh CMA) Housing: Apartment Alcohol intake: current Alcohol intake frequency: does not drink Patient Tobacco Use Status: Current everyday Tobacco user Cigarettes Per Day: 10 e-Cigarette/Vaping Use: Never Used Have you been hit, kicked, punched, or otherwise hurt by someone within the past year? If so, by whom?: No Are you DNR?: No Advance Directives: No Advance Directives Information Provided: Yes Patient : No service: No Current occupational status: unemployed Cognitive needs: No Hearing needs: No Vision needs: No Meds Allergies Allergy/AdvReac Type Severity Reaction Status Date / Time nickel (NICKEL) Allergy Mild ITCHY RASH Verified 04/05/25 13:31 Assessment and Plan Assessment Anesthesia Assessment: Chart Reviewed Documented by User: Alicia Varela DO 04/27/25 11:52 HPI - Anesthesia Eval Consult details Narrative: 29yo F for Upper Endoscopy BMI 42.9 PMFSH Past Medical History Medical History (Updated 04/05/25 @ 14:03 by Castillo William MD) Hyperlipidemia Left ankle pain Vitamin B12 deficiency Vitamin D deficiency Morbid obesity Panic attacks Obesity History of multiple miscarriages No known health problems Family History Family History Father Heart attack Prediabetes Mother IBS (irritable bowel syndrome) Family history of problems with anesthesia: No Surgical History Surgical History History of delivery History of Problems with Anesthesia: No Social History Social History (Updated 04/05/25 @ 13:32 by Fahad Shaikh CMA) Housing: Apartment Alcohol intake: current Alcohol intake frequency: does not drink Patient Tobacco Use Status: Current everyday Tobacco user Cigarettes Per Day: 10 e-Cigarette/Vaping Use: Never Used Have you been hit, kicked, punched, or otherwise hurt by someone within the past year? If so, by whom?: No Are you DNR?: No Advance Directives: No Advance Directives Information Provided: Yes Patient : No service: No Current occupational status: unemployed Cognitive needs: No Hearing needs: No Vision needs: No Meds Allergies Allergy/AdvReac Type Severity Reaction Status Date / Time nickel (NICKEL) Allergy Mild ITCHY RASH Verified 04/05/25 13:31 Exam Exam Date and Time: 04/27/25 1150 Height,Weight and Vital Signs: Height 5 ft 2 in Weight 106.3 kg Vital Signs Temperature 98.5 F 04/27/25 10:19 Pulse Rate 89 04/27/25 10:19 Respiratory Rate 18 04/27/25 10:19 Blood Pressure 126/64 04/27/25 10:19 Pulse Oximetry 97 04/27/25 10:19 Oxygen Delivery Method Room Air 04/27/25 10:19 Temperature 98.5 F 04/27/25 10:19 Pulse Rate 89 04/27/25 10:19 Respiratory Rate 18 04/27/25 10:19 Blood Pressure 126/64 04/27/25 10:19 Pulse Oximetry 97 04/27/25 10:19 Oxygen Delivery Method Room Air 04/27/25 10:19 Airway Mallampati Class: I TM Dist: >3cm Neck ROM: Full Loose/Missing/Broken Teeth: Yes (broken molar left upper jaw) Heart: S1S2 Lungs: CTAB Assessment and Plan Assessment Anesthesia Assessment: Anesthesia Plan Discussed and Chart Reviewed Final Anesthetic Review Family History of Problems with Anesthesia: No History of Problems with Anesthesia: No NPO: Yes ASA Class: II Final Preanesthetic Review: No Changes in Pt Med Stat, Meds/Allgs Chart Reviewed, Consent Obtained/Reviewed and Anes Risks/Benef Reviewed Patient Risk: Low Procedure Risk: Low Anesthetic Plan Anesthetic Plan: MAC: and Agree w/ Assess. and Plan Disposition: Standard PACU
--- NOTE | 2025-04-27 13:08 | P.HPSUR_ITS ---
Pre-Procedural Eval Section A - 24 Hr Update-Section A only Date of Service: 04/27/25 The patient is an INPATIENT: No The patient has been examined within 24 hours of the surgical procedure. The History & Physical has been completed within 30 days and I have reviewed it.: No Section B - Complete if H&P > 30 days Chief Complaint: Morbid (severe) obesity due to excess calories Relevant Family History (Specify if Yes): No Relevant Social History: None Present Medications: None Medical History: No relevant PMH History of Previous Operations: No relevant previous surgery Allergies: Allergies Allergy/AdvReac Type Severity Reaction Status Date / Time nickel (NICKEL) Allergy Mild ITCHY RASH Verified 04/05/25 13:31 Review of Systems Sugical H&P ROS: Negative: Constitution, Cardiovascular, Respiratory, Neurologi kulwant, Psychiatric, Hem-Onc, Allergic/Immunologic, Gastrointestinal, Genitourinary, Musculoskeletal, Integumentary, Endocrine and Eyes/Ears/Nose/Throat Exam Surgical H&P Exam: Normal: HEENT, Normal: Heart, Normal: Lungs, Normal: Extremities, Normal: Abdomen, Normal: Skin and Normal: Neurological Plan Diagnosis/Plan: Unchanged (EGD to assess the stomach's anatomy. Risks of bleeding and perforation were discussed with the patient and she is in agreement with the plan.) I have reviewed the history and physical and performed a pertinent physical examination on my patient. No changes have occurred unless specified. Time Spent With Patient Time: Total time managing care of this patient today ____ minutes.
--- NOTE | 2025-04-27 13:10 | PM.OP ---
Brief Operative Note Date of Service: 04/27/25 Pre-op diagnosis: Obesity Post-op diagnosis: same Procedure: PROCEDURE DATE: 04/27/2025 PREOPERATIVE DIAGNOSIS: Obesity POSTOPERATIVE DIAGNOSIS: ?Same as above. Small reducible diaphragmatic hernia PROCEDURE: Kzjzejdt-afnqku-xfwbtwsckctf with biopsies Surgeon: ?Cayetano Byrd M.D.. Ph.D. Sorting Livestock Worker: None ? Anesthesia: IV sedation Estimated blood loss: ?Minimal FINDINGS AND PROCEDURE: ? OPERATIVE INDICATIONS: ?The patient is a 29 year old female known to me who is interested in bariatric surgery. Based on this information I recommended an upper endoscopy to evaluate the patient's symptoms. Risks and complications of the surgery were discussed with the patient in advance particularly the possibility of perforation or bleeding that may require surgical intervention. The patient understood the risks and was in agreement with the plan. ? PROCEDURE: After informed consent was obtained by the patient, the patient was ?transferred to the Operating Room and was placed in the supine position.? After successful induction of IV sedation, a mouth block was inserted and the patient was placed in the left lateral decubitus position. An upper endoscopy was performed next, the oropharynx and esophagus appeared within the normal limits. There was a small reducible hiatal hernia only seen during biopsies of the GE junction. The z-line was smooth. Two biopsies were obtained from the distal esophagus 2-3 cm proximal to the GE junction and two additional biopsies from the GE junction. The stomach was entered and it appeared to be of normal size. There was no gastritis. There was no stricture or ulcer. A biopsy was obtained from the gastric fundus and the antrum. No significant bleeding was noted from any of the biopsy sites. Retroflexion of the scope confirmed the presence of a normal GE junction. The scope was then advanced into the duodenum which appeared to be normal as well. At that point the duodenum ?and the stomach were decompressed and the scope was withdrawn from the patient's mouth. The patient extubated and was transferred in stable condition to the Recovery Room for further care. I was present and performed all steps of the procedure. There were no residents to assist with this case. Cayetano Byrd M.D., Ph.D. Surgeon: Suresh Byrd MD Anesthesia: MAC Was an Sorting Livestock Worker used for this Procedure?: No Estimated blood loss (mL): 0 IV fluids (mL): 400 Urine output (mL): 0 (No Wilder to record output) Pathology: other (1) antrum x1, 2) fundus x1, 3) GE junction x2, 4) distal esophagus x2) Condition: stable Disposition: PACU
[2025-04-27 13:36] VITALS: BP 97/53; PULSE 88; RESP 16; TEMP 37; O2SAT 95
[2025-04-27 13:51] VITALS: BP 110/71; PULSE 73; RESP 18; TEMP 37; O2SAT 95
== END 2025-04-27 14:27 | disposition home or self-care (01) ==
PROVIDERS: Nurse Practitioner; PCP Internal Medicine; Visit Provider Surgery
PROC: 0DJ08ZZ Inspection of Upper Intestinal Tract, Via Natural or Artificial Opening Endoscopic (ICD-10-PCS; CPT 43235; principal; 2025-04-27 11:40)
DX: E66.01 Morbid (severe) obesity due to excess calories (principal); Z68.42 Body mass index [BMI] 45.0-49.9, adult; K21.9 Gastro-esophageal reflux disease without esophagitis; K44.9 Diaphragmatic hernia without obstruction or gangrene; E78.5 Hyperlipidemia, unspecified; F41.0 Panic disorder [episodic paroxysmal anxiety]; Z79.899 Other long term (current) drug therapy; Z91.048 Other nonmedicinal substance allergy status; F17.210 Nicotine dependence, cigarettes, uncomplicated; Z56.0 Unemployment, unspecified
CPT/HCPCS: 43239; 81025; 88305; 88313; 88342; J2704

== ENCOUNTER → 2025-04-27 10:04 | Outpatient (BNV) | payer OTHER, SELFPAY | PROVIDERS: PCP Internal Medicine; Visit Provider Surgery | DX: E66.01 Morbid (severe) obesity due to excess calories (principal); Z68.42 Body mass index [BMI] 45.0-49.9, adult; K44.9 Diaphragmatic hernia without obstruction or gangrene | CPT/HCPCS: 43239 ==

== ENCOUNTER 2025-04-28 08:35 | Outpatient (REF) | payer OTHER, SELFPAY ==
--- NOTE | ~2025-04-28 | US_ITS ---
EXAMINATION: US ABDOMEN COMPLETE WITH LIVER ELASTOGRAPHY HISTORY: E66.01 - Morbid (severe) obesity due to excess calories TECHNIQUE: Real-time grayscale ultrasound imaging of the abdomen was performed and images were reviewed. COMPARISON: There are no prior studies available for comparison. FINDINGS: Liver: The right lobe of the liver measures 16.8 cm in size. The left lobe of the liver measures 10.0 cm in size. The liver demonstrates increased echotexture, consistent with steatosis. No focal mass or intrahepatic biliary ductal dilatation is identified. There is normal hepatopedal flow in the portal vein. Ultrasound elastography of the liver was performed with 10 separate measurements of the liver parenchyma with the patient in the supine position. Measurements were obtained approximately 2 cm below Ian's capsule and perpendicular to the capsule. The median shear wave velocity is 1.15 m/s. The interquartile range/median (IQR/median) is 0.22. Gallbladder and biliary tree: The gallbladder is unremarkable, without evidence of calculi, wall thickening, or pericholecystic fluid. There is no sonographic Guzman sign. The common bile duct is normal in caliber measuring 3 mm. Kidneys: The right kidney measures 12.3 cm in length. The left kidney measures 12.1 cm in length. The kidneys are unremarkable, without evidence of masses, hydronephrosis, or calculi. Pancreas: The pancreatic head, neck, and body are unremarkable. The pancreatic tail is obscured by bowel gas. Spleen: The spleen is normal in size and contour, measuring 10.6 cm in length. Abdominal aorta and inferior vena cava: The visualized portions of the abdominal aorta and inferior vena cava are normal in caliber. There is no free fluid in the abdomen. US/US abdomen comp w elastography IMPRESSION: Mild hepatomegaly and hepatic steatosis. The median shear wave velocity in the liver is 1.15 m/s, corresponding to a median liver stiffness of 4.0 kPa. The IQR/median value is 0.22. This is indicative of a quality data set. Findings are indicative of a normal elastography value with a low likelihood of severe fibrosis or cirrhosis. REFERENCE: Society of Radiologists in Ultrasound Liver Stiffness Thresholds (2020): LIVER STIFFNESS THRESHOLDS: *Shear wave velocity less than 1.3 m/s (Liver Stiffness equal or less than 5 kPa): High probability of being normal. *Shear wave velocity less than 1.7 m/s (Liver Stiffness less than 9 kPa): In the absence of other known clinical signs, rules out compensated advanced chronic liver disease. *Shear wave velocity between 1.7-2.1 m/s (Liver Stiffness 9-13 kPa): Suggestive of compensated advanced chronic liver disease but need further test for confirmation. *Shear wave velocity between 2.1-2.4 m/s (Liver Stiffness 13-17 kPa): Rules in compensated advanced chronic liver disease. *Shear wave velocity greater than 2.4 m/s (Liver Stiffness over 17 kPa): Suggestive of clinically significant portal hypertension. QUALITY OF DATA SET: *IQR/Median value equal or less than 0.30 implies a quality data set. *IQR/Median value over 0.30 implies a poor quality data set. SIGNIFICANT CHANGE FROM PRIOR EXAM: Significant change if liver stiffness measurement is 10% or greater from prior exam. OTHER CONSIDERATIONS: The stage of liver fibrosis may be overestimated in the setting of acute hepatitis, liver inflammation, elevated liver function tests, hepatic vascular congestion, obstructive cholestasis, non-fasting state, and infiltrative diseases such as amyloidosis and lymphoma. In some patients with NAFLD, the liver stiffness thresholds for compensated advanced chronic liver disease may be lower. In causes other than viral hepatitis and NAFLD, liver stiffness thresholds are not well established. Electronically signed by: Cj Noland MD 04/28/2025 09:49 AM [facility] [place]
== END 2025-04-28 08:36 | disposition home or self-care (01) ==
LOC: HO.US 08:35
PROVIDERS: PCP Student in an Organized Health Care Education/Training Program; Visit Provider Surgery
DX: E66.01 Morbid (severe) obesity due to excess calories (principal); K21.9 Gastro-esophageal reflux disease without esophagitis
CPT/HCPCS: 76700; 76981

== ENCOUNTER → 2025-04-28 08:36 | Outpatient (BNV) | payer OTHER, SELFPAY | PROVIDERS: PCP Student in an Organized Health Care Education/Training Program; Visit Provider Radiology Diagnostic Radiology | DX: E66.01 Morbid (severe) obesity due to excess calories (principal); R16.0 Hepatomegaly, not elsewhere classified; K76.0 Fatty (change of) liver, not elsewhere classified | CPT/HCPCS: 76700 ==